=== PATIENT | female | born 1945 | race African-American/Black ===

== ENCOUNTER 2019-04-14 11:39 | Inpatient (IN) | payer MEDICARE, OTHER ==
[~2019-04-14] VITALS: Ht 165.1 cm; Wt 62.6 kg
[2019-04-14 11:50] VITALS: BP 93/39
--- NOTE | 2019-04-14 11:50 | NUR ---
ED Nurse Note: pt brought by [facility] from [facility] for eval on wound on right buttock. open, yellow drainage noted. no fever or chills reported. AAO x4. respirtions even and non-labored noted. skin warm to touch. per pt, "my legs are weak, I can not walk." pt able to use a bedpan. Rn provide bedpan to get urine sample. on radiation monitor. 2 side rails up. call light within reach. will wait for the further order.
[2019-04-14] MEDS ORDERED: Ipratropium 0.02% Inh Soln 2.5ml UD HHN ONE (12:00)
[2019-04-14] MEDS ORDERED: Albuterol ud Inhalation HHN ONE (12:00)
[2019-04-14] MEDS ORDERED: Morphine Sulfate 2mg/ml Inj(IV/IM USE ONLY) IVP ONE (12:00)
--- NOTE | 2019-04-14 12:19 | Diagnostic Imaging Report ---
EXAM: XR Chest, 1 View CLINICAL HISTORY: DYSPNEA TECHNIQUE: Frontal view of the chest. COMPARISON: No relevant prior studies available. FINDINGS: Lungs: No consolidation. Pleural space: Unremarkable. No pneumothorax. Heart: Borderline cardiomegaly. Mediastinum: Unremarkable. Bones joints: No acute fracture. IMPRESSION: No acute cardiopulmonary disease.
[2019-04-14 13:00] VITALS: BP 104/47
--- NOTE | 2019-04-14 13:00 | NUR ---
ED Nurse Note: lunch tray provide as requested. RN confirmed with that it is ok to eat.
[2019-04-14 13:06] LABS: ANION GAP 10 mmol/L (5-15); BLOOD UREA NITROGEN 11 mg/dL (7-18); CALCIUM 9.6 MG/DL (8.5-10.1); CARBON DIOXIDE 25 MMOL/L (21-32); CHLORIDE 107 MMOL/L (98-107); POTASSIUM 3.6 MMOL/L (3.5-5.1); SODIUM 142 MMOL/L (136-145)
[2019-04-14 13:11] LABS: APPEARANCE,URINE CLEAR; BILIRUBIN, URINE NEGATIVE (NEGATIVE); COLOR,URINE PALE YELLOW; GLUCOSE, URINE (UA) NEGATIVE (NEGATIVE); KETONES,URINE NEGATIVE (NEGATIVE); LEUKOCYTE ESTERASE ,URINE 3+ (NEGATIVE); NITRITE,URINE NEGATIVE (NEGATIVE); PH,URINE 6 (4.5-8.0); PROTEIN,URINE NEGATIVE (NEGATIVE); UROBILINOGEN,URINE 1 MG/DL (0.0-1.0)
[2019-04-14 13:12] LABS: BASOPHILS % (AUTO) 1.7 % (0.0-2.0); EOSINOPHILS % (AUTO) 6.6 % (0.0-3.0); HEMOGLOBIN 11.9 G/DL (12.0-16.0); LYMPHOCYTES % (AUTO) 32.7 % (20.0-45.0); MEAN CORPUSCULAR VOLUME 93 FL (80-99); MONOCYTES % (AUTO) 7.1 % (1.0-10.0); NEUTROPHILS % (AUTO) 51.9 % (45.0-75.0); PLATELET COUNT 247 K/UL (150-450); RED BLOOD COUNT 3.89 M/UL (4.20-5.40); RED CELL DISTRIBUTION WIDTH 12.9 % (11.6-14.8); WHITE BLOOD COUNT 5.5 K/UL (4.8-10.8)
[2019-04-14 13:15] LABS: INR 0.9 (0.9-1.1)
[2019-04-14 13:17] LABS: ALANINE AMINOTRANSFERASE 17 U/L (12-78); ALBUMIN 3.1 G/DL (3.4-5.0); ALBUMIN/GLOBULIN RATIO 0.9 (1.0-2.7); ALKALINE PHOSPHATASE 97 U/L (46-116); ASPARTATE AMINO TRANSFERASE 14 U/L (15-37); BILIRUBIN,TOTAL 0.2 MG/DL (0.2-1.0); CREATINE KINASE 86 U/L (26-308)
[2019-04-14 14:00] VITALS: BP 102/76
[2019-04-14] MEDS ORDERED: Piperacillin/Tazobactam 3.375 GM in NS 110 ML IVPB ONE (14:15)
[2019-04-14] MEDS ORDERED: Vancomycin 1 GM in NS 275 ML IVPB ONE (14:15)
--- NOTE | 2019-04-14 15:00 | NUR ---
ED Nurse Note: pt lying in bed with eye closed. no facial grimacing or moaning noted. will wait for the further order.
--- NOTE | 2019-04-14 15:20 | Emergency Room Report ---
History of Present Illness General Chief Complaint: General Complaint Source: Patient, EMS, PMD Present Illness HPI Patient is sent for evaluation of pressure sore. She is in a longterm facility. It is unclear the course of how long this developed. Her private physician requested that she be brought for surgical evaluation to the emergency department. In addition he is concerned about a possible urinary tract infection. Pain rated 10/10 at pressure sore. Sharp and aching without radiation. The patient denies fevers or chills. The patient currently smokes. She is complaining about wheezing. She is not on oxygen at the longterm facility. She does not have any productive cough at this time. She denies chest pain. No nausea, vomiting, diarrhea. She does say that she has some mild dysuria. She complains of generalized weakness. She denies headache, change in vision or numbness. She denies depression. Allergies: Coded Allergies: No Known Allergies (Unverified , 04/14/19) Patient History Past Medical History: see triage record Social History: Reports: smoking Social History Narrative SNF -born in [place] Reviewed Nursing Documentation: PMH: Agreed; PSxH: Agreed Nursing Documentation-PMH Hx Cardiac Problems: Yes - HYPERLIPIDEMIA Hx Hypertension: Yes Hx Diabetes: Yes Hx Gastrointestinal Problems: Yes - GERD History Of Psychiatric Problem: Yes Review of Systems All Other Systems: negative except mentioned in HPI Physical Exam Vital Signs Date Time Temp Pulse Resp B/P (MAP) Pulse Ox O2 Delivery O2 Flow Rate FiO2 04/14/19 11:43 98.6 92 19 89/53 (65) 96 Nasal Cannula 2.0 04/14/19 12:53 21 Sp02 EP Interpretation: reviewed, abnormal - On oxygen her underlying oxygen saturation is most likely low. General Appearance: no apparent distress, non-toxic, Chronically Ill Head: normocephalic, atraumatic Eyes: bilateral eye normal inspection, bilateral eye PERRL, bilateral eye EOMI ENT: moist mucus membranes Neck: full range of motion, supple Respiratory: chest non-tender, wheezing, expiration Cardiovascular #1: normal peripheral pulses, regular rate, rhythm, no edema, no JVD Cardiovascular #2: 2+ radial (R) Gastrointestinal: normal bowel sounds, non tender, soft Genitourinary: no CVA tenderness Musculoskeletal: back normal, normal range of motion, no calf tenderness Neurologic: motor strength/tone normal, DTRs symmetric, sensory intact, oriented - X2 Psychiatric: mood/affect normal Skin: Decubitus/Ulcer - right hip area - hard to stage - eschar filling area - looks deep - some purulent drainage, warm/dry Medical Decision Making Diagnostic Impression: Primary Impression: UTI (urinary tract infection) Qualified Codes: N39.0 - Urinary tract infection, site not specified Additional Impressions: Decubitus ulcer Qualified Codes: L89.210 - Pressure ulcer of right hip, unstageable COPD (chronic obstructive pulmonary disease) Qualified Codes: J44.9 - Chronic obstructive pulmonary disease, unspecified ER Course Patient presents for evaluation of decubitus ulcer. Differential includes cellulitis, wound needing surgical debridement, abscess amongst others. In addition the patient is complaining about some mild dysuria and wheezing. Evaluation with EKG, chest x-ray and labs. 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 Breathing treatments are ordered. In addition morphine is ordered for analgesia along with Zofran. EKG without injury. Chest x-ray with some mild COPD no infiltrates. Normal white count. Eosinophilia. Labs with slightly elevated glucose. Pyuria is present. Culture of decubitus wound obtained by ct and sent to lab. Antibiotics begun for urinary tract infection. In addition consideration of coverage for possible decubitus infection. Advised by [place] to admit the patient for observation. Dr. Talley distribution engineer. Also contacted Dr. Garg for consultation. Notify Dr. Mathis of admission to Dr. Talley. Advised patient of UTI and she asks if it is syphilis. Advised patient that there is no suspicion of syphilis at this time. Improved with treatment - less pain and no respiratory distress. Admit medical floor. Laboratory Tests Test 04/14/19 12:30 White Blood Count 5.5 K/UL (4.8-10.8) Red Blood Count 3.89 M/UL (4.20-5.40) L Hemoglobin 11.9 G/DL (12.0-16.0) L Hematocrit 36.0 % (37.0-47.0) L Mean Corpuscular Volume 93 FL (80-99) Mean Corpuscular Hemoglobin 30.6 PG (27.0-31.0) Mean Corpuscular Hemoglobin Concent 33.0 G/DL (32.0-36.0) Red Cell Distribution Width 12.9 % (11.6-14.8) Platelet Count 247 K/UL (150-450) Mean Platelet Volume 7.5 FL (6.5-10.1) Neutrophils (%) (Auto) 51.9 % (45.0-75.0) Lymphocytes (%) (Auto) 32.7 % (20.0-45.0) Monocytes (%) (Auto) 7.1 % (1.0-10.0) Eosinophils (%) (Auto) 6.6 % (0.0-3.0) H Basophils (%) (Auto) 1.7 % (0.0-2.0) Prothrombin Time 10.1 SEC (9.30-11.50) Prothrombin Time INR 0.9 (0.9-1.1) PTT 27 SEC (23-33) Urine Color Pale yellow Urine Appearance Clear Urine pH 6 (4.5-8.0) Urine Specific [place] 1.010 (1.005-1.035) Urine Protein Negative (NEGATIVE) Urine Glucose (UA) Negative (NEGATIVE) Urine Ketones Negative (NEGATIVE) Urine Blood 1+ (NEGATIVE) H Urine Nitrite Negative (NEGATIVE) Urine Bilirubin Negative (NEGATIVE) Urine Urobilinogen 1 MG/DL (0.0-1.0) H Urine Leukocyte Esterase 3+ (NEGATIVE) H Urine RBC 0-2 /HPF (0 - 2) Urine WBC 30-40 /HPF (0 - 2) H Urine Squamous Epithelial Cells Few /LPF (NONE/OCC) Urine Bacteria Moderate /HPF (NONE) H Sodium Level 142 MMOL/L (136-145) Potassium Level 3.6 MMOL/L (3.5-5.1) Chloride Level 107 MMOL/L (98-107) Carbon Dioxide Level 25 MMOL/L (21-32) Anion Gap 10 mmol/L (5-15) Blood Urea Nitrogen 11 mg/dL (7-18) Creatinine 1.0 MG/DL (0.55-1.30) Estimate Glomerular Filtration Rate mL/min (>60) Glucose Level 172 MG/DL (74-106) H Lactic Acid Level 1.60 mmol/L (0.4-2.0) Calcium Level 9.6 MG/DL (8.5-10.1) Total Bilirubin 0.2 MG/DL (0.2-1.0) Aspartate Amino Transferase (AST) 14 U/L (15-37) L Alanine Aminotransferase (ALT) 17 U/L (12-78) Alkaline Phosphatase 97 U/L (46-116) Total Creatine Kinase 86 U/L (26-308) Troponin I 0.000 ng/mL (0.000-0.056) Pro-B-Type Natriuretic Peptide 459 pg/mL (0-125) H Total Protein 6.4 G/DL (6.4-8.2) Albumin 3.1 G/DL (3.4-5.0) L Globulin 3.3 g/dL Albumin/Globulin Ratio 0.9 (1.0-2.7) L Lipase 136 U/L (73-393) EKG Diagnostic Results Rate: normal Rhythm: NSR ST Segments: no acute changes Rhythm Strip Diag. Results EP Interpretation: yes Rhythm: NSR, no PVC's, no ectopy Chest X-Ray Diagnostic Results Chest X-Ray Diagnostic Results : Chest X-Ray Ordered: Yes Indication: Other EP Interpretation: Yes Interpretation: no consolidation, no effusion, no pneumothorax, other - COPD Impression: Other Electronically Signed by: Electronically signed by Jovan Mack MD Last Vital Signs Date Time Temp Pulse Resp B/P (MAP) Pulse Ox O2 Delivery O2 Flow Rate FiO2 04/14/19 18:24 Room Air 04/14/19 18:08 98.2 72 17 95/51 (66) 94 04/14/19 12:54 21 04/14/19 11:43 2.0 Status: improved Disposition: PLACE IN OBSERVATION Condition: Serious Referrals: Joyce Mathis MD (PCP) Jovan Mack MD Apr 14, 2019 15:20
[2019-04-14 16:00] VITALS: BP 107/57
[2019-04-14] MEDS ORDERED: NEXIUM40 MG ORAL (16:32)
[2019-04-14] MEDS ORDERED: SERTRALINE HCL25 MG ORAL (16:32)
[2019-04-14] MEDS ORDERED: RISPERDAL1 MG PO (16:32)
[2019-04-14] MEDS ORDERED: PHARBETOL500 MG PO (16:32)
[2019-04-14] MEDS ORDERED: LABETALOL HCL100 MG ORAL (16:32)
[2019-04-14] MEDS ORDERED: LOSARTAN POTASS50 MG ORAL (16:32)
[2019-04-14] MEDS ORDERED: AMLODIPINE BESYL5 MG ORAL (16:32)
[2019-04-14] MEDS ORDERED: CRESTOR10 M2 ORAL (16:32)
[2019-04-14] MEDS ORDERED: GLIPIZIDE5 MG ORAL (16:32)
--- NOTE | 2019-04-14 17:03 | NUR ---
ED Nurse Note: reports given to LUBNA Barr
[2019-04-14 18:08] VITALS: BP 95/51
--- NOTE | 2019-04-14 18:15 | NUR ---
NURSE NOTES: RECEIVED ADMISSION ORDERS FROM DR HALL. BELONGINGS CHECKED AT BEDSIDE. ALL ACCOUNTED. WOUND ON RIGHT BUTTOCK NOTED, UNSTAGEABLE WITH YELLOW SLOUGH. DRESSING CHANGE DONE. CLEANSED WITH NS, SKIN BARRIER FILM, AND OPTIFOAM APPLIED. NO ODOR NOTED. NO DRAINAGE NOTED. PT WAS ORIENTED TO ROOM AND EDUCATED TO USE CALL LIGHT FOR ANY ASSISTANCE. PT VERBALIZED UNDERSTANDING. BED IN LOWEST POSITION WITH BEDSIDE RAILS X2 RAISED. WILL CONTINUE TO MONITOR.
[2019-04-14] MEDS ORDERED: Morphine Sulfate 2mg/ml Inj(IV/IM USE ONLY) IVP PRN (18:45)
--- NOTE | 2019-04-14 19:24 | NUR ---
HAND-OFF: Report given to Elliot WRAY RN.
[2019-04-14] MEDS: Losartan 25mg tab ORAL SCH (21:00)
[2019-04-14] MEDS: Atorvastatin 20mg tab ORAL SCH (21:31)
[2019-04-14] MEDS: Piperacillin/Tazobactam 3.375 GM in NS 110 ML IVPB SCH (21:32)
[2019-04-14] MEDS: Heparin 5000 units/ml inj SUBQ SCH (21:32)
[2019-04-15] MEDS: Vancomycin 750mg/NS 275ml IVPB SCH ×4 (03:12→14:51)
[2019-04-15] MEDS: GlipiZIDE 5mg tab ORAL SCH ×2 (05:55→17:06)
[2019-04-15] MEDS: Piperacillin/Tazobactam 3.375 GM in NS 110 ML IVPB SCH ×3 (05:55→21:36)
--- NOTE | 2019-04-15 07:03 | NUR ---
HAND-OFF: Report given to Brigido Barr RN.
--- NOTE | 2019-04-15 07:09 | NUR ---
NURSE NOTES: PT sitting up in bed. Alert x2, follows commands. Denies pain at this time. In no acute distress. Dressing changed to buttocks. On fall precautions. Bed in lowest position, locked side rails x2, bed alarm on. informed to call for assistance to commode. Pt verbalized understanding. Will continue to monitor Addendum: 04/15/19 at 0710 by Kathya Johnson RN incorrect time
--- NOTE | 2019-04-15 07:56 | NUR ---
Pt awake in bed, alert and oriented, in room air, no apparent distress noted. IV intact, patent, abx running. Bed in lowest position, side rails up, call light within reach.
[2019-04-15 08:00] VITALS: BP 113/62
[2019-04-15] MEDS: Losartan 25mg tab ORAL SCH ×2 (08:34→20:28)
[2019-04-15] MEDS: Sertraline 100mg tab ORAL SCH (08:36)
[2019-04-15] MEDS: Heparin 5000 units/ml inj SUBQ SCH ×2 (08:38→20:32)
--- NOTE | 2019-04-15 09:00 | NUR ---
RN held on amlodipine and losartan due to pt's BP 113/62.
--- NOTE | 2019-04-15 09:39 | NUR ---
NURSE NOTES: DR HALL AT BEDSIDE, AND MADE AWARE OF WOUND CULTURE POSITIVE FOR MRSA. NO NEW ORDERS RECEIVED.
[2019-04-15 12:00] VITALS: BP 120/69
--- NOTE | 2019-04-15 14:02 | Consultation ---
History of Present Illness General Date patient seen: Apr 15, 2019 Reason for Hospitalization: General Complaint Present Illness HPI This is a very pleasant 73-year-old female prison resident with multiple medical comorbidities who presented with foul-smelling worsening right buttock decubitus ulcer and foul-smelling urine. Patient was admitted for further work- up care and management. Surgery was called to evaluate and assist with care. Patient seen, patient evaluated, chart reviewed. Patient states that when she uses the bathroom oral is gets turned there is a very foul smell coming and makes very uncomfortable and would like it to smell better. Otherwise states she is well and has no complaints Allergies: Coded Allergies: No Known Allergies (Unverified , 04/14/19) Medication History Scheduled Acetaminophen (Pharbetol), 500 MG PO PRN, (Reported) Amlodipine Besylate* (Amlodipine Besylate*), 5 MG ORAL BID, (Reported) Esomeprazole Magnesium (Nexium), 40 MG ORAL DAILY, (Reported) Glipizide* (Glipizide*), 5 MG ORAL BID, (Reported) Labetalol Hcl* (Normodyne*), 100 MG ORAL TID, (Reported) Losartan Potassium* (Losartan Potassium*), 50 MG ORAL BID, (Reported) Risperidone* (Risperdal*), 1 MG PO BID, (Reported) Rosuvastatin Calcium* (Crestor*), 10 MG ORAL DAILY, (Reported) Sertraline Hcl* (Sertraline Hcl*), 100 MG ORAL DAILY, (Reported) Patient History History Provided By: Patient, Medical Record, PMD Healthcare decision maker Resuscitation status Full Code Advanced Directive on File Past Medical/Surgical History Past Medical/Surgical History: (1) Sacral decubitus ulcer (2) Decubitus ulcer (3) COPD (chronic obstructive pulmonary disease) (4) UTI (urinary tract infection) Review of Systems Review of Symptoms General ROS: no weight loss or fever Psychological ROS: no depression or mood changes, no memory loss Ophthalmic ROS: no visual changes or eye irritation ENT ROS: no nasal congestion, hearing loss, dizziness Allergy and Immunology ROS: no allergic symptoms or urticaria Hematological and Lymphatic ROS: no swollen glands, unusual bleeding or bruising Endocrine ROS: no polyuria, polydipsia, weight changes, temperature intolerance Respiratory ROS: no cough, shortness of breath, or wheezing Cardiovascular ROS: no chest pain or dyspnea on exertion Gastrointestinal ROS: denies abdominal pain, no bright red blood in stool. Musculoskeletal ROS: no myalgias or arthralgias Neurological ROS: no TIA or stroke symptoms Dermatological ROS: no new or changing skin lesions, rashes or pruritis Physical Exam Physical Exam General appearance: alert, cooperative, no distress, appears stated age Head: Normocephalic, without obvious abnormality, atraumatic Eyes: conjunctivae/corneas clear. PERRL, EOM's intact. Fundi benign Throat: Lips, mucosa, and tongue normal. Teeth and gums normal Neck: supple, symmetrical, trachea midline, no adenopathy, thyroid: not enlarged, symmetric, no tenderness/mass/nodules, no carotid bruit and no JVD Lungs: clear to auscultation bilaterally Heart: regular rate and rhythm, S1, S2 normal, no murmur, click, rub or gallop Abdomen: soft, non-tender. Bowel sounds normal. No masses, no organomegaly Extremities: extremities normal, atraumatic, no cyanosis or edema Pulses: 2+ and symmetric Skin: Skin color, texture, turgor normal. No rashes or lesions see below Neurologic: Grossly normal Last 24 Hour Vital Signs Date Time Temp Pulse Resp B/P (MAP) Pulse Ox O2 Delivery O2 Flow Rate FiO2 04/15/19 13:23 67 120/69 04/15/19 12:00 98.5 67 22 120/69 (86) 97 04/15/19 09:00 Room Air 04/15/19 08:35 73 113/62 04/15/19 08:34 113/62 04/15/19 08:00 97.3 73 22 113/62 (79) 96 04/15/19 05:55 75 120/60 04/14/19 21:07 72 101/44 04/14/19 21:00 101/44 04/14/19 18:24 Room Air 04/14/19 18:08 98.2 72 17 95/51 (66) 94 04/14/19 18:00 72 95/51 04/14/19 17:16 98.0 92 21 115/65 97 Room Air 04/14/19 16:00 98.0 81 20 107/57 97 Room Air 04/14/19 14:00 98.1 88 18 102/76 98 Room Air Intake and Output 04/14/19 04/15/19 18:59 06:59 Intake Total 985 ml Balance 985 ml Intake IV Total 985 ml # Voids 7 Microbiology Date/Time Source Procedure Growth Status 04/14/19 14:25 Skin Gram Stain - Final Resulted 04/14/19 14:25 Wound Culture - Preliminary Staphylococcus Aureus Resulted Height (Feet): 5 Height (Inches): 5.00 Weight (Pounds): 140 Medications Current Medications Medications (Trade) Dose Ordered Sig/Katia Route PRN Reason Start Time Stop Time Status Last Admin Dose Admin Amlodipine Besylate (Norvasc) 5 mg BID ORAL 04/14/19 18:00 05/14/19 17:59 Atorvastatin Calcium (Lipitor) 20 mg BEDTIME ORAL 04/14/19 21:00 05/14/19 20:59 04/14/19 21:31 Glipizide (Glucotrol) 5 mg BIAC ORAL 04/15/19 06:30 05/15/19 06:29 04/15/19 05:55 Heparin Sodium (Porcine) (Heparin 5000 units/ml) 5,000 units EVERY 12 HOURS SUBQ 04/14/19 21:00 05/14/19 20:59 04/15/19 08:38 Labetalol HCl (Normodyne) 100 mg Q8HR ORAL 04/14/19 22:00 05/14/19 21:59 04/15/19 05:55 Losartan Potassium (Cozaar) 25 mg EVERY 12 HOURS ORAL 04/14/19 21:00 05/14/19 20:59 Morphine Sulfate (Morphine Sulfate) 1 mg Q4H PRN IVP Moderate Pain (Pain Scale 4-6) 04/14/19 18:45 04/21/19 18:44 Pantoprazole (Protonix) 40 mg DAILY ORAL 04/15/19 09:00 05/15/19 08:59 04/15/19 08:35 Piperacillin Sod/ Tazobactam Sod 3.375 gm/Sodium Chloride 110 ml @ 27.5 mls/hr EVERY 8 HOURS IVPB 04/14/19 22:00 04/19/19 21:59 04/15/19 13:23 Risperidone (RisperDAL) 1 mg TWICE A DAY ORAL 04/14/19 18:00 05/14/19 17:59 04/15/19 08:36 Sertraline HCl (Zoloft) 100 mg DAILY ORAL 04/15/19 09:00 05/15/19 08:59 04/15/19 08:36 Vancomycin HCl (Vanco rx to dose) 1 ea DAILY PRN MISC Per rx protocol 04/14/19 18:00 05/14/19 17:59 Vancomycin HCl 750 mg/Sodium Chloride 275 ml @ 183.333 mls/hr Q12HR@0300,1500 IVPB 04/15/19 03:00 04/20/19 02:59 04/15/19 03:12 Assessment/Plan Problem List: (1) Decubitus ulcer Assessment & Plan: 73-year-old female with a foul-smelling right buttock full- thickness stage 3 decubitus ulcer approximately 3 cm x 3 cm with 100% slough. Periwound intact. No purulent drainage. Also has a small unstageable 1 cm x 2 cm left buttock decubitus ulcer as well. Periwound intact. No fluctuance. Nontender on palpation. Patient unsure how long she has had it for. Patient needs optimal nutritional supplementation to ensure healing of wounds. Will await nutritional evaluation and recommendations Patient states that she is able to move and does walk to the bedside commode. I spoke to patient and explained her how important is that she keeps turning herself and offloading pressure on areas of wound and bony prominences. Patient expressed understanding and states she will do her best. Wash right buttock wound with normal saline daily. Apply Thera honey and foam dressing. Will discuss with patient excisional versus non-excisional debridement Turn every 2 hours Offload pressure on heels with pillow Thank you for this consultation we will continue to follow with recommendations ICD Codes: L89.90 - Pressure ulcer of unspecified site, unspecified stage SNOMED: [id number] Qualifiers: Qualified Codes: L89.210 - Pressure ulcer of right hip, unstageable Александр Garg Apr 15, 2019 14:02
[2019-04-15 16:00] VITALS: BP 117/67
--- NOTE | 2019-04-15 16:30 | History and Physical Report ---
DATE OF ADMISSION: 04/14/2019 CHIEF COMPLAINT: Right buttocks ulcer and abscess. HISTORY OF PRESENT ILLNESS: The patient is a 73-year-old female. She has a history of hypertension and diabetes, presented with complaints of right buttocks pain. She was noted to have a large ulcer and open abscess on the right buttocks. According to the patient, she has had pain in the buttock area for approximately two weeks. She has had subjective fevers and chills. She denies any chest pain or shortness of breath. On evaluation in the emergency room, the patient was afebrile. Her white count was normal, but in light of the large abscess and ulcer on her buttocks, she is now admitted for further inpatient evaluation and care. PAST MEDICAL HISTORY: As above. PAST SURGICAL HISTORY: None. CURRENT MEDICATIONS: Reconciled and reviewed. ALLERGIES: None. FAMILY HISTORY: None. SOCIAL HISTORY: There is no known history of tobacco, ethanol, or drugs. REVIEW OF SYSTEMS: GENERAL: Positive fever and chills, but no night sweats. HEENT: No headaches or visual changes. CARDIOPULMONARY: No chest pain or shortness of breath. GASTROINTESTINAL: No nausea or vomiting. GENITOURINARY: No urgency or frequency. MUSCULOSKELETAL: No joint pain or swelling. Neurologic: No evidence of seizures. PHYSICAL EXAMINATION: VITAL SIGNS: Temperature 98.6, pulse 92, respirations 19, blood pressure 89/53. GENERAL: The patient is well-developed, in no apparent distress. HEART: Regular rate and rhythm. LUNGS: Clear. ABDOMEN: Soft, nontender, nondistended. EXTREMITIES: Without clubbing or cyanosis. There is a 3 to 4 cm round open area of induration with whitish slough. There is erythema noted. The patient is exquisitely tender. LABORATORY DATA: Sodium 142, potassium 3.6. White count 5, hemoglobin 11. ASSESSMENT: This is a pleasant elderly female with history of hypertension, diabetes, admitted with complaints of sepsis, possibly mild shock due to a large buttock abscess. She also had a UTI. PLAN: 1. IV antibiotics. 2. Surgical consultation. 3. Cardiology followup regarding the patient's antihypertensives that she is hypotensive currently. 4. We will hydrate gently. 5. We will follow up pending cultures. 6. The patient may need a surgical I and D. 7. We will defer to the consulting surgeon. 8. We will check an A1c level. 9. The patient received IV and oral pain medications as needed. 10. She also received DVT and stress ulcer prophylaxis. Trevor Talley M.D. DR: JOSIE JOB#: [id number] CC:
[2019-04-15] MEDS: Milk of Magnesia 30ml Ud ORAL PRN (17:06)
--- NOTE | 2019-04-15 17:12 | NUR ---
NURSE NOTES: RN held on amlodipine due to pt's BP 117/67 and P 65
--- NOTE | 2019-04-15 17:20 | Cardiology Report ---
APPROVED REPORT EKG Measurement Heart [id number] ID [id number] Normal sinus rhythm with sinus arrhythmia Anterior infarct, age undetermined Abnormal ECG
--- NOTE | 2019-04-15 17:22 | NUR ---
NURSE NOTES: RN changed the dressing on pt's right buttock with thera honey. Pt tolerated.
--- NOTE | 2019-04-15 18:15 | Consultation ---
DATE OF CONSULTATION: 04/15/2019 CARDIOLOGY CONSULTATION CONSULTING PHYSICIAN: Jovan Rose M.D. REASON FOR CONSULT: Hypotension. HISTORY OF PRESENT ILLNESS: This 73-year-old female residing in an assisted living facility, presented to the emergency room last night with pain on her buttocks and was noted to have a large ulcer with open abscess on the right buttock cheek. The patient was noted to have a low blood pressure in the setting although she has a history of hypertension. I have been asked to assist with further cardiovascular care. PAST MEDICAL HISTORY: Otherwise notable for type 2 diabetes mellitus, hypertension, and osteoarthritis. ALLERGIES: None. MEDICATIONS: Reviewed and reconciled. FAMILY HISTORY: Noncontributory. SOCIAL HISTORY: Negative for smoking, alcohol, or substance abuse. REVIEW OF SYSTEMS: She denies prior heart attack. There is no history of seizure or stroke. She is a type 2 diabetic. Cholesterol parameters are not known. There is no known history of kidney disease. PHYSICAL EXAMINATION: VITAL SIGNS: Blood pressure on admission was 89/53, subsequently 95/51; heart rate 72; respiratory rate 18; and afebrile. HEENT: Jugular venous pressure normal. Mucous membranes dry. LUNGS: Clear. CARDIAC: Regular rhythm and rate. Normal S1, S2 with no murmur. ABDOMEN: Soft and nontender. EXTREMITIES: No edema. SKIN: Wound site has dressing in place. LABORATORY AND DIAGNOSTIC DATA: EKG, sinus rhythm with arrhythmia, possible inferior infarction of indeterminate age. Labs reviewed. IMPRESSION: 1. Hypovolemia and early shock. 2. History of hypertension. 3. Possible sepsis due to skin infection. 4. Abscess of the right buttock with cellulitis. 5. Type 2 diabetes mellitus. PLAN: 1. Hydrate with IV fluids. 2. Empiric antimicrobials. 3. Wound care. 4. Hold all antihypertensives. 5. DVT prophylaxis. 6. Antimicrobials per primary care physician. 7. We will follow. Jovan Rose M.D. : [place] JOB#: [id number] CC:
--- NOTE | 2019-04-15 19:15 | NUR ---
HAND-OFF: Report given to LUBNA Rasheed.
--- NOTE | 2019-04-15 19:20 | NUR ---
NURSE NOTES: PT sitting up in bed. Alert x2, follows commands. Denies pain at this time. In no acute distress. Dressing changed to buttocks. On fall precautions. Bed in lowest position, locked side rails x2, bed alarm on. informed to call for assistance to commode. Pt verbalized understanding. Will continue to monitor
[2019-04-15 20:00] VITALS: BP 130/73
[2019-04-15] MEDS: Atorvastatin 20mg tab ORAL SCH (20:27)
[2019-04-16] VITALS: BP 107/64
[2019-04-16] MEDS: Vancomycin 750mg/NS 275ml IVPB SCH ×4 (03:59→15:04)
[2019-04-16 04:00] VITALS: BP 120/61
[2019-04-16 04:43] LABS: BASOPHILS % (AUTO) 1.4 % (0.0-2.0); EOSINOPHILS % (AUTO) 11.1 % (0.0-3.0); HEMATOCRIT 35.4 % (37.0-47.0); HEMOGLOBIN 11.5 G/DL (12.0-16.0); LYMPHOCYTES % (AUTO) 38.6 % (20.0-45.0); MEAN CORPUSCULAR VOLUME 93 FL (80-99); MONOCYTES % (AUTO) 11.2 % (1.0-10.0); NEUTROPHILS % (AUTO) 37.7 % (45.0-75.0); PLATELET COUNT 266 K/UL (150-450); RED BLOOD COUNT 3.83 M/UL (4.20-5.40); RED CELL DISTRIBUTION WIDTH 12.5 % (11.6-14.8); WHITE BLOOD COUNT 5.6 K/UL (4.8-10.8)
[2019-04-16 05:06] LABS: INR 0.9 (0.9-1.1)
[2019-04-16 05:23] LABS: ALANINE AMINOTRANSFERASE 13 U/L (12-78); ALBUMIN/GLOBULIN RATIO 0.9 (1.0-2.7); ALKALINE PHOSPHATASE 83 U/L (46-116); ANION GAP 7 mmol/L (5-15); ASPARTATE AMINO TRANSFERASE 13 U/L (15-37); BILIRUBIN,TOTAL 0.2 MG/DL (0.2-1.0); BLOOD UREA NITROGEN 13 mg/dL (7-18); CARBON DIOXIDE 28 MMOL/L (21-32); CHLORIDE 110 MMOL/L (98-107); CREATININE 1.2 MG/DL (0.55-1.30); POTASSIUM 4.1 MMOL/L (3.5-5.1); SODIUM 145 MMOL/L (136-145)
[2019-04-16] MEDS: Piperacillin/Tazobactam 3.375 GM in NS 110 ML IVPB SCH (06:38)
[2019-04-16] MEDS: GlipiZIDE 5mg tab ORAL SCH ×2 (06:38→16:09)
--- NOTE | 2019-04-16 07:35 | NUR ---
HAND-OFF: Report given to LUBNA Sanchez.
--- NOTE | 2019-04-16 07:52 | NUR ---
NURSE NOTES: Pt awake, A/O x 4, calm. denies pain. no SOB noted. dressing in place, CDI. remains on Abx. call light within reach. fall precaution maintained. bed alarm on. will continue to monitor.
[2019-04-16 08:00] VITALS: BP 122/63
[2019-04-16] MEDS: Sertraline 100mg tab ORAL SCH (08:27)
[2019-04-16] MEDS: Losartan 25mg tab ORAL SCH ×2 (08:29→21:12)
[2019-04-16] MEDS: Heparin 5000 units/ml inj SUBQ SCH ×2 (08:29→21:13)
--- NOTE | 2019-04-16 09:17 | General Progress Note ---
Assessment/Plan Problem List: (1) UTI (urinary tract infection) ICD Codes: N39.0 - Urinary tract infection, site not specified SNOMED: 79718154 Qualifiers: Qualified Codes: N39.0 - Urinary tract infection, site not specified (2) COPD (chronic obstructive pulmonary disease) ICD Codes: J44.9 - Chronic obstructive pulmonary disease, unspecified SNOMED: 22576376 Qualifiers: Qualified Codes: J44.9 - Chronic obstructive pulmonary disease, unspecified (3) Decubitus ulcer ICD Codes: L89.90 - Pressure ulcer of unspecified site, unspecified stage SNOMED: 883084141 Qualifiers: Qualified Codes: L89.210 - Pressure ulcer of right hip, unstageable (4) Sacral decubitus ulcer ICD Codes: L89.159 - Pressure ulcer of sacral region, unspecified stage SNOMED: 944367666 Status: stable, progressing Assessment/Plan: iv abx follow up cultures wound care pain rx ID eval Subjective ROS Limited/Unobtainable: No Constitutional: Reports: malaise, weakness HEENT: Reports: no symptoms Cardiovascular: Reports: no symptoms Respiratory: Reports: no symptoms Gastrointestinal/Abdominal: Reports: no symptoms Genitourinary: Reports: no symptoms Neurologic/Psychiatric: Reports: no symptoms Endocrine: Reports: no symptoms Hematologic/Lymphatic: Reports: no symptoms Allergies: Coded Allergies: No Known Allergies (Unverified , 04/14/19) All Systems: reviewed and negative except above Subjective no events. w/o complaints. right buttocks pain. getting wound care. cultures noted. no fevers Objective Last 24 Hour Vital Signs Date Time Temp Pulse Resp B/P (MAP) Pulse Ox O2 Delivery O2 Flow Rate FiO2 04/16/19 08:29 122/63 04/16/19 08:28 70 122/63 04/16/19 08:00 98.3 70 20 122/63 (82) 99 04/16/19 06:00 66 119/57 04/16/19 04:00 97.8 66 20 120/61 (80) 98 04/16/19 00:00 98.7 72 20 107/64 (78) 97 04/15/19 21:36 80 104/57 04/15/19 21:00 Room Air 04/15/19 20:28 130/73 04/15/19 20:00 99.0 73 20 130/73 (92) 94 04/15/19 17:09 65 117/67 04/15/19 16:00 98.0 65 20 117/67 (84) 97 04/15/19 13:23 67 120/69 04/15/19 12:00 98.5 67 22 120/69 (86) 97 Intake and Output 04/15/19 04/16/19 19:00 07:00 Intake Total 357.500 ml Balance 357.500 ml Intake IV Total 357.500 ml # Bowel Movements 1 Laboratory Tests 04/16/19 02:05: Vancomycin Level Trough 12.9H 04/16/19 04:30: White Blood Count 5.6, Red Blood Count 3.83L, Hemoglobin 11.5L, Hematocrit 35.4L , Mean Corpuscular Volume 93, Mean Corpuscular Hemoglobin 30.1, Mean Corpuscular Hemoglobin Concent 32.5, Red Cell Distribution Width 12.5, Platelet Count 266, Mean Platelet Volume 7.0, Neutrophils (%) (Auto) 37.7L, Lymphocytes ( %) (Auto) 38.6, Monocytes (%) (Auto) 11.2H, Eosinophils (%) (Auto) 11.1H, Basophils (%) (Auto) 1.4, Erythrocyte Sedimentation Rate 30, Prothrombin Time 9.8, Prothromb Time International Ratio 0.9, Activated Partial Thromboplast Time 27, Sodium Level 145, Potassium Level 4.1, Chloride Level 110H, Carbon Dioxide Level 28, Anion Gap 7, Blood Urea Nitrogen 13, Creatinine 1.2, Estimat Glomerular Filtration Rate , Glucose Level 51L, Calcium Level 10.0, Total Bilirubin 0.2, Aspartate Amino Transf (AST/SGOT) 13L, Alanine Aminotransferase ( ALT/SGPT) 13, Alkaline Phosphatase 83, C-Reactive Protein, Quantitative 0.8, Total Protein 6.2L, Albumin 3.0L, Globulin 3.2, Albumin/Globulin Ratio 0.9L Height (Feet): 5 Height (Inches): 5.00 Weight (Pounds): 140 General Appearance: WD/WN, alert Neck: supple Cardiovascular: normal rate, regular rhythm Respiratory/Chest: chest wall non-tender, lungs clear Abdomen: normal bowel sounds, non tender, soft, no organomegaly Edema: no edema noted Arm (L), no edema noted Arm (R), no edema noted Leg (L), no edema noted Leg (R), no edema noted Pedal (L), no edema noted Pedal (R), no edema noted 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
--- NOTE | 2019-04-16 10:01 | NUR ---
NURSE NOTES: relayed to dr Talley re mrsa skin +, awaiting response
[2019-04-16 12:00] VITALS: BP 127/68
--- NOTE | 2019-04-16 13:21 | Surgery Progress Note ---
Surgery Progress Note Subjective Additional Comments Patient seen and examined bedside. No acute events. States she is comfortable. Is standing up and using the bedside commode today. Denies any pain or discomfort. If has any issues states that she ordered a soda this morning is not received yet. Objective Last 24 Hour Vital Signs Date Time Temp Pulse Resp B/P (MAP) Pulse Ox O2 Delivery O2 Flow Rate FiO2 04/16/19 12:00 98.5 74 20 127/68 (87) 99 04/16/19 09:00 Room Air 04/16/19 08:29 122/63 04/16/19 08:28 70 122/63 04/16/19 08:00 98.3 70 20 122/63 (82) 99 04/16/19 06:00 66 119/57 04/16/19 04:00 97.8 66 20 120/61 (80) 98 04/16/19 00:00 98.7 72 20 107/64 (78) 97 04/15/19 21:36 80 104/57 04/15/19 21:00 Room Air 04/15/19 20:28 130/73 04/15/19 20:00 99.0 73 20 130/73 (92) 94 04/15/19 17:09 65 117/67 04/15/19 16:00 98.0 65 20 117/67 (84) 97 04/15/19 13:23 67 120/69 I&O Intake and Output 04/15/19 04/16/19 18:59 06:59 Intake Total 357.500 ml Balance 357.500 ml Intake IV Total 357.500 ml # Bowel Movements 1 Dressing: saturated Wound: clean Cardiovascular: RSR Respiratory: clear Abdomen: soft, flat, non-tender, present bowel sounds Extremities: no edema, no tenderness, no cyanosis Laboratory Tests Test 04/16/19 02:05 04/16/19 04:30 Vancomycin Level Trough 12.9 ug/mL (5.0-12.0) H White Blood Count 5.6 K/UL (4.8-10.8) Red Blood Count 3.83 M/UL (4.20-5.40) L Hemoglobin 11.5 G/DL (12.0-16.0) L Hematocrit 35.4 % (37.0-47.0) L Mean Corpuscular Volume 93 FL (80-99) Mean Corpuscular Hemoglobin 30.1 PG (27.0-31.0) Mean Corpuscular Hemoglobin Concent 32.5 G/DL (32.0-36.0) Red Cell Distribution Width 12.5 % (11.6-14.8) Platelet Count 266 K/UL (150-450) Mean Platelet Volume 7.0 FL (6.5-10.1) Neutrophils (%) (Auto) 37.7 % (45.0-75.0) L Lymphocytes (%) (Auto) 38.6 % (20.0-45.0) Monocytes (%) (Auto) 11.2 % (1.0-10.0) H Eosinophils (%) (Auto) 11.1 % (0.0-3.0) H Basophils (%) (Auto) 1.4 % (0.0-2.0) Erythrocyte Sedimentation Rate 30 MM/HR (0-30) Prothrombin Time 9.8 SEC (9.30-11.50) Prothromb Time International Ratio 0.9 (0.9-1.1) Activated Partial Thromboplast Time 27 SEC (23-33) Sodium Level 145 MMOL/L (136-145) Potassium Level 4.1 MMOL/L (3.5-5.1) Chloride Level 110 MMOL/L (98-107) H Carbon Dioxide Level 28 MMOL/L (21-32) Anion Gap 7 mmol/L (5-15) Blood Urea Nitrogen 13 mg/dL (7-18) Creatinine 1.2 MG/DL (0.55-1.30) Estimat Glomerular Filtration Rate mL/min (>60) Glucose Level 51 MG/DL (74-106) L Calcium Level 10.0 MG/DL (8.5-10.1) Total Bilirubin 0.2 MG/DL (0.2-1.0) Aspartate Amino Transf (AST/SGOT) 13 U/L (15-37) L Alanine Aminotransferase (ALT/SGPT) 13 U/L (12-78) Alkaline Phosphatase 83 U/L (46-116) C-Reactive Protein, Quantitative 0.8 mg/dL (0.00-0.90) Total Protein 6.2 G/DL (6.4-8.2) L Albumin 3.0 G/DL (3.4-5.0) L Globulin 3.2 g/dL Albumin/Globulin Ratio 0.9 (1.0-2.7) L Plan Problems: (1) Decubitus ulcer Assessment & Plan: 73-year-old female with a foul-smelling right buttock full- thickness stage 3 decubitus ulcer approximately 3 cm x 3 cm with 100% slough. Periwound intact. No purulent drainage. Also has a small unstageable 1 cm x 2 cm left buttock decubitus ulcer as well. Periwound intact. No fluctuance. Nontender on palpation. Patient unsure how long she has had it for. Patient needs optimal nutritional supplementation to ensure healing of wounds. Will await nutritional evaluation and recommendations Patient states that she is able to move and does walk to the bedside commode. I spoke to patient and explained her how important is that she keeps turning herself and offloading pressure on areas of wound and bony prominences. Patient expressed understanding and states she will do her best. Wash right buttock wound with normal saline daily. Apply Thera honey and foam dressing. Will discuss with patient excisional versus non-excisional debridement Turn every 2 hours Offload pressure on heels with pillow Thank you for this consultation we will continue to follow with recommendations Additional Comments Continue with local wound care. Александр Garg Apr 16, 2019 13:20
[2019-04-16] MEDS: cefTRIAXone 1gm/D5W 55ml IVPB SCH ×2 (14:13)
--- NOTE | 2019-04-16 15:04 | NUR ---
NURSE NOTES:WOUND CARE NOTES:Pt presented on admission with full thickness pressure injury R ischium. Base of wound has 90% slough. Periwound indurated without erythema. Pt verbalized pain when perimeter of wound palpated. No odor or exudate noted.(L)3cm x (W)2.5cm. Excisional debridement of wound done at bedside by .Pt tolerated procedure.Small amt sanguineous exudate noted.Gauze packing in place and covered with Optifoam drsg.
[2019-04-16 16:50] VITALS: BP 118/68
--- NOTE | 2019-04-16 18:51 | NUR ---
NURSE NOTES: Dressing changed by wound nurse/CDI. will continue to monitor.
--- NOTE | 2019-04-16 19:17 | NUR ---
HAND-OFF: Report given to Jim CALVO.
--- NOTE | 2019-04-16 19:54 | NUR ---
NURSE NOTES: received patient awake,alert,verbal,resting in bed,with stable vital signs.
[2019-04-16 19:58] VITALS: BP 123/67
[2019-04-16] MEDS: Atorvastatin 20mg tab ORAL SCH (21:12)
--- NOTE | 2019-04-16 22:45 | Progress Note ---
DATE: 04/16/2019 SUBJECTIVE: Blood pressure parameters have improved. No dizziness. No hypotensive episodes noted. Pain of her right buttocks remains a concern. Wound care is ongoing. OBJECTIVE: VITAL SIGNS: Blood pressure 122/63, pulse 70, respirations 20, no fevers. LUNGS: Bilateral breath sounds. CARDIAC: Regular rhythm and rate. Normal S1, S2 with no new murmur. ABDOMEN: Soft. EXTREMITIES: There is no edema. LABORATORY DATA: White count 5.6, hemoglobin 11.5. Sodium 145, potassium 4.1, bicarb 28, BUN 13, creatinine 1.2, glucose 51. Albumin 3.0. IMPRESSION: 1. Cellulitis and abscess of right buttock. 2. Hypovolemia and sepsis with early shock, recovered. 3. Hypoglycemia. 4. Mild dehydration with borderline hypernatremia and hyperkalemia. 5. History of hypertension, now with controlled blood pressure. Off medications. PLAN: 1. Continue hold parameters for antihypertensives. 2. Cautious hydration with hypotonic IV fluids. 3. DVT prophylaxis. Jovan Rose M.D. DR: SVETA JOB#: [id number] CC:
[2019-04-17 00:15] VITALS: BP 116/58
[2019-04-17] MEDS: Vancomycin 750mg/NS 275ml IVPB SCH ×4 (03:01→15:38)
[2019-04-17 04:13] VITALS: BP 120/60
[2019-04-17] MEDS: GlipiZIDE 5mg tab ORAL SCH ×2 (06:09→17:28)
--- NOTE | 2019-04-17 07:08 | NUR ---
HAND-OFF: Report given to LUBNA Winkler. Addendum: 04/17/19 at 0727 by AZUL VILLEDA RN HAND-OFF: Written Report given to Mir Mckeon RN .
[2019-04-17 08:00] VITALS: BP 125/72
--- NOTE | 2019-04-17 08:23 | NUR ---
NURSE NOTES: Patient is alert and oriented. No reports of discomfort at the moment. Side rails are upx2, bed is locked, in lowest position, and call light is within reach. Will continue to monitor.
--- NOTE | 2019-04-17 09:08 | General Progress Note ---
Assessment/Plan Problem List: (1) UTI (urinary tract infection) ICD Codes: N39.0 - Urinary tract infection, site not specified SNOMED: [id number] Qualifiers: Qualified Codes: N39.0 - Urinary tract infection, site not specified (2) COPD (chronic obstructive pulmonary disease) ICD Codes: J44.9 - Chronic obstructive pulmonary disease, unspecified SNOMED: [id number] Qualifiers: Qualified Codes: J44.9 - Chronic obstructive pulmonary disease, unspecified (3) Decubitus ulcer ICD Codes: L89.90 - Pressure ulcer of unspecified site, unspecified stage SNOMED: [id number] Qualifiers: Qualified Codes: L89.210 - Pressure ulcer of right hip, unstageable (4) Sacral decubitus ulcer ICD Codes: L89.159 - Pressure ulcer of sacral region, unspecified stage SNOMED: [id number] Status: stable, progressing Assessment/Plan: iv abx follow up cultures wound care pain rx ID eval pending Subjective ROS Limited/Unobtainable: No Constitutional: Reports: malaise, weakness HEENT: Reports: no symptoms Cardiovascular: Reports: no symptoms Respiratory: Reports: no symptoms Gastrointestinal/Abdominal: Reports: no symptoms Genitourinary: Reports: no symptoms Neurologic/Psychiatric: Reports: no symptoms Endocrine: Reports: no symptoms Hematologic/Lymphatic: Reports: no symptoms Allergies: Coded Allergies: No Known Allergies (Unverified , 04/14/19) All Systems: reviewed and negative except above Subjective no events. w/o complaints. right buttocks pain. getting wound care. cultures noted. no fevers Objective Last 24 Hour Vital Signs Date Time Temp Pulse Resp B/P (MAP) Pulse Ox O2 Delivery O2 Flow Rate FiO2 04/17/19 06:09 66 120/60 04/17/19 04:13 97.8 66 18 120/60 (80) 94 04/17/19 00:15 98.1 65 18 116/58 (77) 96 04/16/19 21:12 123/67 04/16/19 21:11 65 123/67 04/16/19 20:31 Room Air 04/16/19 19:58 97.3 65 18 123/67 (85) 100 04/16/19 17:14 70 118/68 04/16/19 16:50 98.5 70 20 118/68 (85) 99 04/16/19 14:11 74 127/68 04/16/19 12:00 98.5 74 20 127/68 (87) 99 Intake and Output 04/16/19 04/17/19 19:00 07:00 Intake Total 1190.000 ml 1695.000 ml Balance 1190.000 ml 1695.000 ml Intake Oral 860 ml 420 ml IV Total 330.000 ml 1275.000 ml # Voids 6 5 # Bowel Movements 1 1 Height (Feet): 5 Height (Inches): 5.00 Weight (Pounds): 140 Objective General Appearance: WD/WN, alert Neck: supple Cardiovascular: normal rate, regular rhythm Respiratory/Chest: chest wall non-tender, lungs clear Abdomen: normal bowel sounds, non tender, soft, no organomegaly Edema: no edema noted Arm (L), no edema noted Arm (R), no edema noted Leg (L), no edema noted Leg (R), no edema noted Pedal (L), no edema noted Pedal (R), no edema noted 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
[2019-04-17] MEDS: Sertraline 100mg tab ORAL SCH (09:26)
[2019-04-17] MEDS: Losartan 25mg tab ORAL SCH ×2 (09:28→21:00)
[2019-04-17] MEDS: cefTRIAXone 1gm/D5W 55ml IVPB SCH ×2 (09:29)
[2019-04-17] MEDS: Heparin 5000 units/ml inj SUBQ SCH ×2 (09:29→21:21)
--- NOTE | 2019-04-17 09:59 | NUR ---
NURSE NOTES: Dressing changed on right buttock per wound care order. Patient tolerated. Will continue to monitor.
--- NOTE | 2019-04-17 11:23 | NUR ---
*-* INSURANCE *-* ALL AVAILABLE CLINICALS HAVE BEEN FAXED TO: [employer] or tracking# assigned yet #[phone]
[2019-04-17 12:00] VITALS: BP 120/70
--- NOTE | 2019-04-17 15:25 | Surgery Progress Note ---
Surgery Progress Note Subjective Additional Comments omar cute events comfortable stable Objective Last 24 Hour Vital Signs Date Time Temp Pulse Resp B/P (MAP) Pulse Ox O2 Delivery O2 Flow Rate FiO2 04/17/19 14:00 72 114/65 04/17/19 12:00 98.7 75 18 120/70 (87) 96 04/17/19 09:28 125/72 04/17/19 09:28 80 125/72 04/17/19 09:00 Room Air 04/17/19 08:00 97.6 80 18 125/72 (89) 95 04/17/19 06:09 66 120/60 04/17/19 04:13 97.8 66 18 120/60 (80) 94 04/17/19 00:15 98.1 65 18 116/58 (77) 96 04/16/19 21:12 123/67 04/16/19 21:11 65 123/67 04/16/19 20:31 Room Air 04/16/19 19:58 97.3 65 18 123/67 (85) 100 04/16/19 17:14 70 118/68 04/16/19 16:50 98.5 70 20 118/68 (85) 99 I&O Intake and Output 04/16/19 04/17/19 18:59 06:59 Intake Total 1190.000 ml 1695.000 ml Balance 1190.000 ml 1695.000 ml Intake Oral 860 ml 420 ml IV Total 330.000 ml 1275.000 ml # Voids 6 5 # Bowel Movements 1 1 Dressing: dry Wound: clean Cardiovascular: RSR Respiratory: clear Abdomen: soft, flat, non-tender, present bowel sounds Extremities: no edema, no tenderness, no cyanosis Plan Problems: (1) Decubitus ulcer Assessment & Plan: 73-year-old female with a foul-smelling right buttock full- thickness stage 3 decubitus ulcer approximately 3 cm x 3 cm with 100% slough. Periwound intact. No purulent drainage. Also has a small unstageable 1 cm x 2 cm left buttock decubitus ulcer as well. Periwound intact. No fluctuance. Nontender on palpation. Patient unsure how long she has had it for. Pt presented on admission with full thickness pressure injury R ischium. Base of wound has 90% slough. Periwound indurated without erythema. Pt verbalized pain when perimeter of wound palpated. No odor or exudate noted.(L)3cm x (W) 2.5cm. Excisional debridement of wound done at bedside by .Pt tolerated procedure.Small amt sanguineous exudate noted.Gauze packing in place and covered with Optifoam drsg. Patient needs optimal nutritional supplementation to ensure healing of wounds. Will await nutritional evaluation and recommendations Patient states that she is able to move and does walk to the bedside commode. I spoke to patient and explained her how important is that she keeps turning herself and offloading pressure on areas of wound and bony prominences. Patient expressed understanding and states she will do her best. Wash right buttock wound with normal saline daily. Apply Thera honey and foam dressing. Will discuss with patient excisional versus non-excisional debridement Turn every 2 hours Offload pressure on heels with pillow Thank you for this consultation we will continue to follow with recommendations Александр Garg Apr 17, 2019 15:25
[2019-04-17 16:00] VITALS: BP 134/62
--- NOTE | 2019-04-17 16:37 | NUR ---
CASE MANAGEMENT:REVIEW 73 YR OLD FEMALE BIBA FROM [facility] SI: COPD. UTI SACRAL DECUB ULCER 98.6 92 19 89/53 96% ON 2L/NC IS: 1L NS BOLUS DUONEB HHN IV ZOFRAN IV MORPHINE URINE CX CXR URINE CX : TO MED/SURG 4 [facility] 04/16/19 SI:COPD. UTI. SACRAL DECUB 98.5 74 20 127/68 99% ON RA IS: IV ROCEPHIN QD IV VANCOMYCIN Q12 COZAAR PO Q12 ZOLOFT PO QD NORVASC PO BID RISPERDAL PO BID : MED/SURG STATUS 4 [facility]
--- NOTE | 2019-04-17 16:47 | NUR ---
CASE MANAGEMENT:REVIEW 04/17/19 SI:COPD. UTI. SACRAL DECUB 98.7 75 18 120/70 96% ON RA IS: IV ROCEPHIN QD IV VANCOMYCIN Q12 COZAAR PO Q12 ZOLOFT PO QD NORVASC PO BID RISPERDAL PO BID : MED/SURG STATUS 4 [facility]: WOUND CARE PER SURGEON
--- NOTE | 2019-04-17 18:30 | Consultation ---
DATE OF CONSULTATION: 04/17/2019 INFECTIOUS DISEASES CONSULTATION CONSULTING PHYSICIAN: Bharat Gardiner M.D. REFERRING PHYSICIAN: Trevor Talley M.D. REASON FOR CONSULTATION: Right buttock ulcer and abscess. HISTORY OF PRESENTING ILLNESS: This is a 73-year-old lady with history of diabetes, hypertension, who came in with right buttock pain. She was noted to have an ulcer there and an abscess. An Infectious Diseases consultation has been obtained for antibiotics. PAST MEDICAL HISTORY: 1. History of diabetes. 2. Hypertension. SOCIAL HISTORY: She does not smoke, drink, or use drugs. FAMILY HISTORY: Unknown. REVIEW OF SYSTEMS: Unable to obtain currently. MEDICATIONS: As an inpatient, she is on ceftriaxone, labetalol, losartan, milk of magnesia, sertraline, Protonix, glipizide, IV vancomycin, subcutaneous heparin, atorvastatin, morphine, amlodipine, and Risperdal. ALLERGIES: No known drug allergies. PHYSICAL EXAMINATION: VITAL SIGNS: Temperature of 97.6, T-max of 98.5, pulse of 80, respiratory rate of 18, blood pressure 125/72, and O2 saturation of 95%. HEENT: Pupils equally reactive to light and accommodation. Mouth appears clean without thrush. NECK: Supple. No adenopathy. No JVD. CARDIOVASCULAR: Regular rate and rhythm. No murmurs. LUNGS: Clear to auscultation bilaterally. No crackles. No wheezes. ABDOMEN: Soft and nontender. No organomegaly. Right buttock ulcer with drainage noted. LABORATORY AND DIAGNOSTIC DATA: White count 5.6, hemoglobin 11.5, hematocrit 35.4, MCV 93, platelet count of 266. Sodium 145, potassium 4.1, chloride 110, bicarb 28, BUN 13, creatinine 1.2, glucose 51, calcium of 10. Total bilirubin 0.2. AST 13, ALT 13, alkaline phosphatase 83. C-reactive protein of 0.8. Total protein 6.2. Albumin of 3. Lipase of 136. UA showing 30 to 40 white cells. Nasal swab was negative for MRSA. Rectal swab was negative for VRE. Wound culture is positive for MRSA. 04/14/2019 urine culture is growing Citrobacter, which is susceptible to ceftriaxone. 04/14/2019 blood cultures are negative. Chest x-ray showing no acute disease. ASSESSMENT: This is a 73-year-old lady with history of diabetes and hypertension, who comes in with, 1. Right buttock ulcer and abscess growing MRSA, she has been seen by Surgery. 2. Citrobacter urinary tract infection. 3. Diabetes. 4. Hypertension. PLAN: 1. Continue IV vancomycin. 2. Continue ceftriaxone. 3. We will follow up cultures. I would like to thank, Dr. Talley, for this consultation. Bharat Gardiner M.D. DR: MISTY JOB#: [id number] CC: Trevor Talley M.D.
--- NOTE | 2019-04-17 19:46 | NUR ---
NURSE NOTES: Received patient awake,alert,verbal,resting in bed,comfortable.
[2019-04-17 19:49] VITALS: BP 107/55
--- NOTE | 2019-04-17 19:54 | NUR ---
HAND-OFF: Report given to LUBNA Comer.
[2019-04-17] MEDS: Atorvastatin 20mg tab ORAL SCH (21:21)
--- NOTE | 2019-04-17 23:30 | Progress Note ---
DATE: 04/17/2019 CARDIOLOGY PROGRESS NOTE SUBJECTIVE: The patient with no fever, still getting wound care. No shortness of breath. OBJECTIVE: VITAL SIGNS: Blood pressure 120/60, pulse rate 66, respiratory rate 18, afebrile. LUNGS: Clear. CARDIAC: Regular. Normal S1, S2 with a fourth heart sound. ABDOMEN: Soft. EXTREMITIES: No edema. SKIN: Wound site has dressing in place. IMPRESSION: 1. Cellulitis and abscess, right buttock. 2. Early shock due to sepsis and hypovolemia, resolved. 3. Dehydration and hypernatremia, corrected. 4. Hypertensive heart disease with controlled blood pressure. PLAN: 1. Maintenance hydration. 2. Antimicrobials. 3. Wound care. 4. DVT prophylaxis. 5. Titrate antihypertensives based on clinical parameters. Jovan Rose M.D. DR: QUIN JOB#: [id number] CC:
[2019-04-18] VITALS: BP 97/56
[2019-04-18] MEDS: Vancomycin 750mg/NS 275ml IVPB SCH ×4 (02:29→14:07)
[2019-04-18 04:09] VITALS: BP 134/67
[2019-04-18] MEDS: GlipiZIDE 5mg tab ORAL SCH ×2 (05:18→17:06)
--- NOTE | 2019-04-18 07:24 | NUR ---
HAND-OFF: Report given to Earl Byrnes RN.
--- NOTE | 2019-04-18 07:39 | NUR ---
NURSE NOTES: Received report from LUBNA Comer. Patient in bed resting, no active s/s cardiac, respiratory distress noticed at this time. Patient AOx4, on room air, denies pain at this time. IV on right FA 20G, asymptomatic, patent, intact. Bed in lowest position, side rails upx2, call light within reach. Will continue to monitor.
[2019-04-18 08:00] VITALS: BP 121/63
[2019-04-18] MEDS: cefTRIAXone 1gm/D5W 55ml IVPB SCH ×2 (09:30)
[2019-04-18] MEDS: Sertraline 100mg tab ORAL SCH (09:31)
[2019-04-18] MEDS: Losartan 25mg tab ORAL SCH ×2 (09:31→21:00)
[2019-04-18] MEDS: Heparin 5000 units/ml inj SUBQ SCH ×2 (09:32→21:13)
--- NOTE | 2019-04-18 09:32 | General Progress Note ---
Assessment/Plan Problem List: (1) UTI (urinary tract infection) ICD Codes: N39.0 - Urinary tract infection, site not specified SNOMED: 71875969 Qualifiers: Qualified Codes: N39.0 - Urinary tract infection, site not specified (2) COPD (chronic obstructive pulmonary disease) ICD Codes: J44.9 - Chronic obstructive pulmonary disease, unspecified SNOMED: 40577377 Qualifiers: Qualified Codes: J44.9 - Chronic obstructive pulmonary disease, unspecified (3) Decubitus ulcer ICD Codes: L89.90 - Pressure ulcer of unspecified site, unspecified stage SNOMED: 044564963 Qualifiers: Qualified Codes: L89.210 - Pressure ulcer of right hip, unstageable (4) Sacral decubitus ulcer ICD Codes: L89.159 - Pressure ulcer of sacral region, unspecified stage SNOMED: 627815590 Status: stable, progressing Assessment/Plan: iv abx follow up cultures wound care pain rx ID eval appreciated Subjective ROS Limited/Unobtainable: No Constitutional: Reports: weakness HEENT: Reports: no symptoms Cardiovascular: Reports: no symptoms Respiratory: Reports: no symptoms Gastrointestinal/Abdominal: Reports: no symptoms Genitourinary: Reports: no symptoms Neurologic/Psychiatric: Reports: no symptoms Endocrine: Reports: no symptoms Hematologic/Lymphatic: Reports: no symptoms Allergies: Coded Allergies: No Known Allergies (Unverified , 04/14/19) All Systems: reviewed and negative except above Subjective no events. right buttocks pain. getting wound care. cultures noted. no fevers s/p I and D by surgery Objective Last 24 Hour Vital Signs Date Time Temp Pulse Resp B/P (MAP) Pulse Ox O2 Delivery O2 Flow Rate FiO2 04/18/19 05:19 70 134/67 04/18/19 04:09 98.1 70 16 134/67 (89) 98 04/18/19 00:00 98.1 88 18 97/56 (70) 100 04/17/19 21:21 75 107/55 04/17/19 21:00 107/55 04/17/19 20:23 Room Air 04/17/19 19:49 99.0 75 18 107/55 (72) 94 04/17/19 17:28 73 130/67 04/17/19 16:00 98.8 71 18 134/62 (86) 100 04/17/19 14:00 72 114/65 04/17/19 12:00 98.7 75 18 120/70 (87) 96 Intake and Output 04/17/19 04/18/19 19:00 07:00 Intake Total 500 ml 275.000 ml Output Total 300 ml Balance 200 ml 275.000 ml Intake Oral 500 ml IV Total 275.000 ml Output Urine Total 300 ml # Voids 3 2 # Bowel Movements 1 1 Height (Feet): 5 Height (Inches): 5.00 Weight (Pounds): 138 Objective General Appearance: WD/WN, alert Neck: supple Cardiovascular: normal rate, regular rhythm Respiratory/Chest: chest wall non-tender, lungs clear Abdomen: normal bowel sounds, non tender, soft, no organomegaly Edema: no edema noted Arm (L), no edema noted Arm (R), no edema noted Leg (L), no edema noted Leg (R), no edema noted Pedal (L), no edema noted Pedal (R), no edema noted 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
[2019-04-18 12:00] VITALS: BP 124/70
--- NOTE | 2019-04-18 13:59 | NUR ---
CASE MANAGEMENT:REVIEW 04/18/19 SI:COPD. UTI. SACRAL DECUB S/P EXCISIONAL DEBRIDEMENT 97.8 71 17 121/63 99% ON RA IS: IV ROCEPHIN QD IV VANCOMYCIN Q12 COZAAR PO Q12 ZOLOFT PO QD NORVASC PO BID RISPERDAL PO BID : MED/SURG STATUS 4 EAST DCP: FROM [facility] B&C PLAN: WOUND CARE~ WASH W/NS DAILY..APPLY THERA HONEY AND FOAM DRESSING
--- NOTE | 2019-04-18 14:15 | NUR ---
RD ASSESSMENT & RECOMMENDATIONS SEE CARE ACTIVITY FOR COMPLETE ASSESSMENT DAILY ESTIMATED NEEDS: Needs based on Wound/ 65kg 25-30 kcals/kg 2408-7674 total kcals 1.3-1.8 g protein/kg 85-117 g total protein 25-30 mL/kg 0637-8808 total fluid mLs NUTRITION DIAGNOSIS: Increased kcal/prot needs R/T wound healing as evidenced by pt admitted w/ stage 3 R ischium wound, s/p excisional debridement and small unstageable wound @ L buttock. CURRENT DIET:CCHO LOW, soft easy chew PO DIET RECOMMENDATIONS: CCHO MED/ texture as tolerated ADDITIONAL RECOMMENDATIONS: * Wound healing: add MVI w/ min 1 tab QD add Vit C 500mg QD add ZnSO4 220mg QD x 10 days Lopez 1pkt BID added to tray * A1C for eval of glycemic control * Consider accucheck + SSI: h/o DM * Snacks TID in b/w meals to prevent hypoglycemia * F/up CBC and BMP as able (last done on 04/16)
[2019-04-18 16:00] VITALS: BP 118/72
--- NOTE | 2019-04-18 19:10 | NUR ---
HAND-OFF: Report given to LUBNA Comer.
--- NOTE | 2019-04-18 19:51 | NUR ---
NURSE NOTES: Received patient awake,alert,verbal,resting in bed, comfortable.
[2019-04-18 20:00] VITALS: BP 119/57
[2019-04-18] MEDS: Atorvastatin 20mg tab ORAL SCH (21:12)
--- NOTE | 2019-04-18 21:58 | Surgery Progress Note ---
Surgery Progress Note Subjective Symptoms: improved, voiding well, passing flatus Objective Last 24 Hour Vital Signs Date Time Temp Pulse Resp B/P (MAP) Pulse Ox O2 Delivery O2 Flow Rate FiO2 04/18/19 21:13 76 119/57 04/18/19 21:00 119/57 04/18/19 20:00 99.0 76 16 119/57 (77) 95 04/18/19 17:07 72 118/72 04/18/19 16:00 99.2 72 18 118/72 (87) 96 04/18/19 14:06 76 124/70 04/18/19 12:00 97.0 76 18 124/70 (88) 96 04/18/19 09:32 71 123/70 04/18/19 09:31 123/70 04/18/19 09:00 Room Air 04/18/19 08:00 97.8 71 17 121/63 (82) 99 04/18/19 05:19 70 134/67 04/18/19 04:09 98.1 70 16 134/67 (89) 98 04/18/19 00:00 98.1 88 18 97/56 (70) 100 I&O Intake and Output 04/17/19 04/18/19 19:00 07:00 Intake Total 500 ml 275.000 ml Output Total 300 ml Balance 200 ml 275.000 ml Intake Oral 500 ml IV Total 275.000 ml Output Urine Total 300 ml # Voids 3 2 # Bowel Movements 1 1 Dressing: saturated Wound: clean Cardiovascular: RSR Respiratory: clear Abdomen: soft, non-tender, present bowel sounds Extremities: no cyanosis, other Plan Problems: (1) Decubitus ulcer Assessment & Plan: 73-year-old female with a foul-smelling right buttock full- thickness stage 3 decubitus ulcer approximately 3 cm x 3 cm with 100% slough. Periwound intact. No purulent drainage. Also has a small unstageable 1 cm x 2 cm left buttock decubitus ulcer as well. Periwound intact. No fluctuance. Nontender on palpation. Patient unsure how long she has had it for. Pt presented on admission with full thickness pressure injury R ischium. Base of wound has 90% slough. Periwound indurated without erythema. Pt verbalized pain when perimeter of wound palpated. No odor or exudate noted.(L)3cm x (W) 2.5cm. Excisional debridement of wound done at bedside by .Pt tolerated procedure.Small amt sanguineous exudate noted.Gauze packing in place and covered with Optifoam drsg. Patient states that she is able to move and does walk to the bedside commode. I spoke to patient and explained her how important is that she keeps turning herself and offloading pressure on areas of wound and bony prominences. Patient expressed understanding and states she will do her best. Wash right buttock wound with normal saline daily. Apply Thera honey and foam dressing. Will discuss with patient excisional versus non-excisional debridement Turn every 2 hours Offload pressure on heels with pillow Thank you for this consultation we will continue to follow with recommendations (2) Sacral decubitus ulcer Assessment & Plan: DAILY ESTIMATED NEEDS: Needs based on Wound/ 65kg 25-30 kcals/kg 0482-2031 total kcals 1.3-1.8 g protein/kg 85-117 g total protein 25-30 mL/kg 6722-1043 total fluid mLs NUTRITION DIAGNOSIS: Increased kcal/prot needs R/T wound healing as evidenced by pt admitted w/ stage 3 R ischium wound, s/p excisional debridement and small unstageable wound @ L buttock. CURRENT DIET:CCHO LOW, soft easy chew PO DIET RECOMMENDATIONS: CCHO MED/ texture as tolerated ADDITIONAL RECOMMENDATIONS: * Wound healing: add MVI w/ min 1 tab QD add Vit C 500mg QD add ZnSO4 220mg QD x 10 days Lopez 1pkt BID added to tray * A1C for eval of glycemic control * Consider accucheck + SSI: h/o DM * Snacks TID in b/w meals to prevent hypoglycemia * F/up CBC and BMP as able (last done on 04/16) Александр Garg Apr 18, 2019 21:58
[2019-04-19] VITALS (7 sets, daily range): BP systolic 96–135; BP diastolic 55–87
--- NOTE | 2019-04-19 | Progress Note ---
DATE: 04/18/2019 CARDIOLOGY PROGRESS NOTE SUBJECTIVE: The patient has continued pain of her buttocks. She continues with wound care. She has no fevers. She has no chest pain. She has no shortness of breath. OBJECTIVE: VITAL SIGNS: Blood pressure 134/67, pulse 70, and respirations 16. HEENT: Conjunctivae pink. Oropharynx clear. NECK: Supple. LUNGS: Clear. CARDIAC: Regular. Normal S1, S2. There is no new murmur. ABDOMEN: Soft. EXTREMITIES: No edema. LABORATORY DATA: No new laboratories today. IMPRESSIONS: 1. Cellulitis and abscess of right buttocks. 2. Hypertensive heart disease. 3. Chronic diastolic congestive heart failure. 4. Mild protein-calorie malnutrition. PLAN: 1. Adjust IV fluids. 2. Titrate antihypertensives. 3. DVT prophylaxis. 4. Antimicrobials and wound care. Jovan Rose M.D. DR: MIKAEL JOB#: [id number] CC:
[2019-04-19] MEDS: Vancomycin 750mg/NS 275ml IVPB SCH ×4 (02:30→15:16)
[2019-04-19] MEDS: GlipiZIDE 5mg tab ORAL SCH ×2 (05:51→17:21)
[2019-04-19 06:37] LABS: BASOPHILS % (AUTO) 1.6 % (0.0-2.0); HEMATOCRIT 39.2 % (37.0-47.0); HEMOGLOBIN 12.9 G/DL (12.0-16.0); MEAN CORPUSCULAR VOLUME 93 FL (80-99); MONOCYTES % (AUTO) 9.4 % (1.0-10.0); PLATELET COUNT 253 K/UL (150-450); RED BLOOD COUNT 4.24 M/UL (4.20-5.40); RED CELL DISTRIBUTION WIDTH 13.1 % (11.6-14.8); WHITE BLOOD COUNT 5.6 K/UL (4.8-10.8)
[2019-04-19 07:08] LABS: ALANINE AMINOTRANSFERASE 17 U/L (12-78); ALBUMIN 3.3 G/DL (3.4-5.0); ALBUMIN/GLOBULIN RATIO 0.9 (1.0-2.7); ALKALINE PHOSPHATASE 88 U/L (46-116); ANION GAP 10 mmol/L (5-15); ASPARTATE AMINO TRANSFERASE 11 U/L (15-37); BILIRUBIN,TOTAL 0.3 MG/DL (0.2-1.0); BLOOD UREA NITROGEN 22 mg/dL (7-18); CALCIUM 10.1 MG/DL (8.5-10.1); CARBON DIOXIDE 24 MMOL/L (21-32); CHLORIDE 105 MMOL/L (98-107); POTASSIUM 4.1 MMOL/L (3.5-5.1); SODIUM 139 MMOL/L (136-145)
--- NOTE | 2019-04-19 07:22 | NUR ---
HAND-OFF: Report given to Momo Fofana RN.
--- NOTE | 2019-04-19 07:45 | General Progress Note ---
Assessment/Plan Problem List: (1) UTI (urinary tract infection) ICD Codes: N39.0 - Urinary tract infection, site not specified SNOMED: [id number] Qualifiers: Qualified Codes: N39.0 - Urinary tract infection, site not specified (2) COPD (chronic obstructive pulmonary disease) ICD Codes: J44.9 - Chronic obstructive pulmonary disease, unspecified SNOMED: 13365906 Qualifiers: Qualified Codes: J44.9 - Chronic obstructive pulmonary disease, unspecified (3) Decubitus ulcer ICD Codes: L89.90 - Pressure ulcer of unspecified site, unspecified stage SNOMED: 992000458 Qualifiers: Qualified Codes: L89.210 - Pressure ulcer of right hip, unstageable (4) Sacral decubitus ulcer ICD Codes: L89.159 - Pressure ulcer of sacral region, unspecified stage SNOMED: 029380665 Status: stable, progressing Assessment/Plan: iv abx follow up cultures wound care pain rx ID eval appreciated dc planing to [facility] if able to do wound care there Subjective ROS Limited/Unobtainable: No Constitutional: Reports: malaise, weakness HEENT: Reports: no symptoms Cardiovascular: Reports: no symptoms Respiratory: Reports: no symptoms Gastrointestinal/Abdominal: Reports: no symptoms Genitourinary: Reports: no symptoms Neurologic/Psychiatric: Reports: anxiety Endocrine: Reports: no symptoms Allergies: Coded Allergies: No Known Allergies (Unverified , 04/14/19) All Systems: reviewed and negative except above Subjective no events. right buttocks pain. getting wound care. cultures noted. no fevers s/p I and D by surgery. has decreased pain Objective Last 24 Hour Vital Signs Date Time Temp Pulse Resp B/P (MAP) Pulse Ox O2 Delivery O2 Flow Rate FiO2 04/19/19 05:51 77 114/62 04/19/19 04:00 99.1 77 16 114/62 (79) 95 04/19/19 00:09 98.4 75 16 110/55 (73) 96 04/18/19 21:13 76 119/57 04/18/19 21:00 119/57 04/18/19 21:00 Room Air 04/18/19 20:00 99.0 76 16 119/57 (77) 95 04/18/19 17:07 72 118/72 04/18/19 16:00 99.2 72 18 118/72 (87) 96 04/18/19 14:06 76 124/70 04/18/19 12:00 97.0 76 18 124/70 (88) 96 04/18/19 09:32 71 123/70 04/18/19 09:31 123/70 04/18/19 09:00 Room Air 04/18/19 08:00 97.8 71 17 121/63 (82) 99 Intake and Output 04/18/19 04/19/19 18:59 06:59 Intake Total 288 ml 275.000 ml Output Total 0 ml Balance 288 ml 275.000 ml Intake Oral 288 ml IV Total 275.000 ml Output Urine Total 0 ml # Voids 4 3 # Bowel Movements 1 Laboratory Tests 04/19/19 06:20: White Blood Count 5.6, Red Blood Count 4.24, Hemoglobin 12.9, Hematocrit 39.2, Mean Corpuscular Volume 93, Mean Corpuscular Hemoglobin 30.5, Mean Corpuscular Hemoglobin Concent 32.9, Red Cell Distribution Width 13.1, Platelet Count 253, Mean Platelet Volume 7.1, Neutrophils (%) (Auto) 50.0, Lymphocytes (%) (Auto) 30.0, Monocytes (%) (Auto) 9.4, Eosinophils (%) (Auto) 9.0H, Basophils (%) (Auto ) 1.6, Sodium Level 139, Potassium Level 4.1, Chloride Level 105, Carbon Dioxide Level 24, Anion Gap 10, Blood Urea Nitrogen 22H, Creatinine 1.0, Estimat Glomerular Filtration Rate , Glucose Level 118H, Calcium Level 10.1, Magnesium Level 1.8, Total Bilirubin 0.3, Aspartate Amino Transf (AST/SGOT) 11L , Alanine Aminotransferase (ALT/SGPT) 17, Alkaline Phosphatase 88, Pro-B-Type Natriuretic Peptide 142H, Total Protein 7.0, Albumin 3.3L, Globulin 3.7, Albumin /Globulin Ratio 0.9L Height (Feet): 5 Height (Inches): 5.00 Weight (Pounds): 138 Objective General Appearance: WD/WN, alert Neck: supple Cardiovascular: normal rate, regular rhythm Respiratory/Chest: chest wall non-tender, lungs clear Abdomen: normal bowel sounds, non tender, soft, no organomegaly Edema: no edema noted Arm (L), no edema noted Arm (R), no edema noted Leg (L), no edema noted Leg (R), no edema noted Pedal (L), no edema noted Pedal (R), no edema noted 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
--- NOTE | 2019-04-19 07:47 | NUR ---
NURSE NOTES: PT AXOX3, CALM, RESTING IN BED. PT HAS FINISHED BREAKFAST. DENIES ANY PAIN AT THIS TIME. BED IN LOWEST POSITION WITH BEDSIDE RAILS X2. COMMODE AT BEDSIDE. CALL LIGHT WITHIN REACH. WILL CONTINUE TO MONITOR.
[2019-04-19] MEDS: Sertraline 100mg tab ORAL SCH (08:25)
[2019-04-19] MEDS: Ascorbic Acid 500mg tab ORAL SCH (08:25)
[2019-04-19] MEDS: cefTRIAXone 1gm/D5W 55ml IVPB SCH ×2 (08:25)
[2019-04-19] MEDS: Zinc Sulfate 220mg cap ORAL SCH (08:26)
[2019-04-19] MEDS: Losartan 25mg tab ORAL SCH ×2 (08:26→20:41)
[2019-04-19] MEDS: Heparin 5000 units/ml inj SUBQ SCH ×2 (08:32→20:50)
--- NOTE | 2019-04-19 10:36 | Infectious Diseases Prog Note ---
Assessment/Plan Assessment/Plan A: 1. 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 Citrobacter urinary tract infection. 3. Diabetes. 4. Hypertension. P: 1. Continue IV vancomycin & ceftriaxone. 2. Wound care Subjective ROS Limited/Unobtainable: No Constitutional: Reports: no symptoms Respiratory: Reports: no symptoms Gastrointestinal/Abdominal: Reports: no symptoms Genitourinary: Reports: no symptoms Musculoskeletal: Reports: pain, other - in buttock area Allergies: Coded Allergies: No Known Allergies (Unverified , 04/14/19) Objective Vital Signs Last 24 Hour Vital Signs Date Time Temp Pulse Resp B/P (MAP) Pulse Ox O2 Delivery O2 Flow Rate FiO2 04/19/19 09:00 Room Air 04/19/19 08:26 135/87 04/19/19 08:25 89 135/87 04/19/19 08:00 98.1 89 17 135/87 (103) 100 04/19/19 05:51 77 114/62 04/19/19 04:00 99.1 77 16 114/62 (79) 95 04/19/19 00:09 98.4 75 16 110/55 (73) 96 04/18/19 21:13 76 119/57 04/18/19 21:00 119/57 04/18/19 21:00 Room Air 04/18/19 20:00 99.0 76 16 119/57 (77) 95 04/18/19 17:07 72 118/72 04/18/19 16:00 99.2 72 18 118/72 (87) 96 04/18/19 14:06 76 124/70 04/18/19 12:00 97.0 76 18 124/70 (88) 96 Height (Feet): 5 Height (Inches): 5.00 Weight (Pounds): 138 General Appearance: no acute distress HEENT: mucous membranes moist Respiratory/Chest: lungs clear Cardiovascular: normal rate Abdomen: soft, non tender Extremities: no edema Skin: ulcers Neurologic/Psychiatric: alert, responsive Laboratory Tests Test 04/19/19 06:20 White Blood Count 5.6 K/UL (4.8-10.8) Red Blood Count 4.24 M/UL (4.20-5.40) Hemoglobin 12.9 G/DL (12.0-16.0) Hematocrit 39.2 % (37.0-47.0) Mean Corpuscular Volume 93 FL (80-99) Mean Corpuscular Hemoglobin 30.5 PG (27.0-31.0) Mean Corpuscular Hemoglobin Concent 32.9 G/DL (32.0-36.0) Red Cell Distribution Width 13.1 % (11.6-14.8) Platelet Count 253 K/UL (150-450) Mean Platelet Volume 7.1 FL (6.5-10.1) Neutrophils (%) (Auto) 50.0 % (45.0-75.0) Lymphocytes (%) (Auto) 30.0 % (20.0-45.0) Monocytes (%) (Auto) 9.4 % (1.0-10.0) Eosinophils (%) (Auto) 9.0 % (0.0-3.0) H Basophils (%) (Auto) 1.6 % (0.0-2.0) Sodium Level 139 MMOL/L (136-145) Potassium Level 4.1 MMOL/L (3.5-5.1) Chloride Level 105 MMOL/L (98-107) Carbon Dioxide Level 24 MMOL/L (21-32) Anion Gap 10 mmol/L (5-15) Blood Urea Nitrogen 22 mg/dL (7-18) H Creatinine 1.0 MG/DL (0.55-1.30) Estimat Glomerular Filtration Rate mL/min (>60) Glucose Level 118 MG/DL (74-106) H Calcium Level 10.1 MG/DL (8.5-10.1) Magnesium Level 1.8 MG/DL (1.8-2.4) Total Bilirubin 0.3 MG/DL (0.2-1.0) Aspartate Amino Transf (AST/SGOT) 11 U/L (15-37) L Alanine Aminotransferase (ALT/SGPT) 17 U/L (12-78) Alkaline Phosphatase 88 U/L (46-116) Pro-B-Type Natriuretic Peptide 142 pg/mL (0-125) H Total Protein 7.0 G/DL (6.4-8.2) Albumin 3.3 G/DL (3.4-5.0) L Globulin 3.7 g/dL Albumin/Globulin Ratio 0.9 (1.0-2.7) L Current Medications Medications (Trade) Dose Ordered Sig/Katia Route PRN Reason Start Time Stop Time Status Last Admin Dose Admin Amlodipine Besylate (Norvasc) 5 mg BID ORAL 04/14/19 18:00 05/14/19 17:59 04/19/19 08:25 Ascorbic Acid (Vitamin C) 500 mg DAILY ORAL 04/19/19 09:00 05/19/19 08:59 04/19/19 08:25 Atorvastatin Calcium (Lipitor) 20 mg BEDTIME ORAL 04/14/19 21:00 05/14/19 20:59 04/18/19 21:12 Ceftriaxone Sodium 1 gm/ Dextrose 55 ml @ 110 mls/hr DAILY IVPB 04/16/19 14:00 04/23/19 13:59 04/19/19 08:25 Glipizide (Glucotrol) 5 mg BIAC ORAL 04/15/19 06:30 05/15/19 06:29 04/19/19 05:51 Heparin Sodium (Porcine) (Heparin 5000 units/ml) 5,000 units EVERY 12 HOURS SUBQ 04/14/19 21:00 05/14/19 20:59 04/18/19 21:13 Labetalol HCl (Normodyne) 100 mg Q8HR ORAL 04/15/19 22:00 05/15/19 21:59 04/18/19 14:06 Losartan Potassium (Cozaar) 25 mg EVERY 12 HOURS ORAL 04/15/19 21:00 05/15/19 20:59 04/19/19 08:26 Magnesium Hydroxide (Mom) 30 ml TIDPRN PRN ORAL Constipation 04/15/19 15:45 05/15/19 15:44 04/15/19 17:06 Morphine Sulfate (Morphine Sulfate) 1 mg Q4H PRN IVP Moderate Pain (Pain Scale 4-6) 04/14/19 18:45 04/21/19 18:44 04/15/19 14:53 Multivitamins (Multivitamins) 1 tab DAILY ORAL 04/19/19 09:00 05/19/19 08:59 04/19/19 08:25 Pantoprazole (Protonix) 40 mg DAILY ORAL 04/15/19 09:00 05/15/19 08:59 04/19/19 08:26 Risperidone (RisperDAL) 1 mg TWICE A DAY ORAL 04/14/19 18:00 05/14/19 17:59 04/19/19 08:26 Sertraline HCl (Zoloft) 100 mg DAILY ORAL 04/15/19 09:00 05/15/19 08:59 04/19/19 08:25 Vancomycin HCl (Vanco rx to dose) 1 ea DAILY PRN MISC Per rx protocol 04/14/19 18:00 05/14/19 17:59 Vancomycin HCl 750 mg/Sodium Chloride 275 ml @ 183.333 mls/hr Q12HR@0300,1500 IVPB 04/15/19 03:00 04/20/19 02:59 04/19/19 02:30 Zinc Sulfate (Zinc Sulfate) 220 mg DAILY ORAL 04/19/19 09:00 04/29/19 08:59 04/19/19 08:26 Alfredo Rubio MD Apr 19, 2019 10:36
--- NOTE | 2019-04-19 12:37 | NUR ---
CASE MANAGEMENT:REVIEW 04/19/19 SI:COPD. UTI. RT BUTTOCK ULCER & ABSCESS GROWING MRSA S/P EXCISIONAL DEBRIDEMENT 98.1 89 17 135/87 100% ON RA IS: IV ROCEPHIN QD IV VANCOMYCIN Q12 COZAAR PO Q12 ZOLOFT PO QD NORVASC PO BID RISPERDAL PO BID : MED/SURG STATUS 4 EAST DCP: FROM [facility] B&C PLAN: WOUND CARE~ WASH W/NS DAILY..APPLY THERA HONEY AND FOAM DRESSING CONTINUE IV VANCOMYCIN AND ROCEPHIN DC PLANNING TO RETURN TO [facility] IF ABLE TO DO WOUND CARE THERE
--- NOTE | 2019-04-19 12:44 | NUR ---
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
--- NOTE | 2019-04-19 14:32 | NUR ---
*-* INSURANCE *-* ALL AVAILABLE CLINICALS HAVE BEEN FAXED TO: Steffen No Treater or tracking# assigned yet #[phone]
--- NOTE | 2019-04-19 16:46 | NUR ---
NURSE NOTES:WOUND CARE FOLLOW-UP NOTES: Full thickness wound R ischium resolving. Base of wound is moist viable, surroundg are without erythema or induration. Pt denied tenderness when palpated (L)1cm x (W)1cm x (D)0.8cm. No new skin concerns noted.
--- NOTE | 2019-04-19 17:39 | Surgery Progress Note ---
Surgery Progress Note Subjective Symptoms: improved, tolerating diet, voiding well, passing flatus, BM Objective Last 24 Hour Vital Signs Date Time Temp Pulse Resp B/P (MAP) Pulse Ox O2 Delivery O2 Flow Rate FiO2 04/19/19 17:21 78 110/76 04/19/19 16:00 98.3 78 19 110/76 (87) 100 04/19/19 14:00 73 111/57 04/19/19 12:00 98.2 73 18 111/57 (75) 97 04/19/19 09:00 Room Air 04/19/19 08:26 135/87 04/19/19 08:25 89 135/87 04/19/19 08:00 98.1 89 17 135/87 (103) 100 04/19/19 05:51 77 114/62 04/19/19 04:00 99.1 77 16 114/62 (79) 95 04/19/19 00:09 98.4 75 16 110/55 (73) 96 04/18/19 21:13 76 119/57 04/18/19 21:00 119/57 04/18/19 21:00 Room Air 04/18/19 20:00 99.0 76 16 119/57 (77) 95 I&O Intake and Output 04/18/19 04/19/19 19:00 07:00 Intake Total 288 ml 275.000 ml Output Total 0 ml Balance 288 ml 275.000 ml Intake Oral 288 ml IV Total 275.000 ml Output Urine Total 0 ml # Voids 4 3 # Bowel Movements 1 Dressing: saturated Wound: clean Cardiovascular: RSR Respiratory: clear Abdomen: soft, flat, non-tender, present bowel sounds Extremities: no edema, no tenderness, no cyanosis Laboratory Tests Test 04/19/19 06:20 White Blood Count 5.6 K/UL (4.8-10.8) Red Blood Count 4.24 M/UL (4.20-5.40) Hemoglobin 12.9 G/DL (12.0-16.0) Hematocrit 39.2 % (37.0-47.0) Mean Corpuscular Volume 93 FL (80-99) Mean Corpuscular Hemoglobin 30.5 PG (27.0-31.0) Mean Corpuscular Hemoglobin Concent 32.9 G/DL (32.0-36.0) Red Cell Distribution Width 13.1 % (11.6-14.8) Platelet Count 253 K/UL (150-450) Mean Platelet Volume 7.1 FL (6.5-10.1) Neutrophils (%) (Auto) 50.0 % (45.0-75.0) Lymphocytes (%) (Auto) 30.0 % (20.0-45.0) Monocytes (%) (Auto) 9.4 % (1.0-10.0) Eosinophils (%) (Auto) 9.0 % (0.0-3.0) H Basophils (%) (Auto) 1.6 % (0.0-2.0) Sodium Level 139 MMOL/L (136-145) Potassium Level 4.1 MMOL/L (3.5-5.1) Chloride Level 105 MMOL/L (98-107) Carbon Dioxide Level 24 MMOL/L (21-32) Anion Gap 10 mmol/L (5-15) Blood Urea Nitrogen 22 mg/dL (7-18) H Creatinine 1.0 MG/DL (0.55-1.30) Estimat Glomerular Filtration Rate mL/min (>60) Glucose Level 118 MG/DL (74-106) H Calcium Level 10.1 MG/DL (8.5-10.1) Magnesium Level 1.8 MG/DL (1.8-2.4) Total Bilirubin 0.3 MG/DL (0.2-1.0) Aspartate Amino Transf (AST/SGOT) 11 U/L (15-37) L Alanine Aminotransferase (ALT/SGPT) 17 U/L (12-78) Alkaline Phosphatase 88 U/L (46-116) Pro-B-Type Natriuretic Peptide 142 pg/mL (0-125) H Total Protein 7.0 G/DL (6.4-8.2) Albumin 3.3 G/DL (3.4-5.0) L Globulin 3.7 g/dL Albumin/Globulin Ratio 0.9 (1.0-2.7) L Plan Problems: (1) Decubitus ulcer Assessment & Plan: 73-year-old female with a foul-smelling right buttock full- thickness stage 3 decubitus ulcer approximately 3 cm x 3 cm with 100% slough. Periwound intact. No purulent drainage. Also has a small unstageable 1 cm x 2 cm left buttock decubitus ulcer as well. Periwound intact. No fluctuance. Nontender on palpation. Patient unsure how long she has had it for. Pt presented on admission with full thickness pressure injury R ischium. Base of wound has 90% slough. Periwound indurated without erythema. Pt verbalized pain when perimeter of wound palpated. No odor or exudate noted.(L)3cm x (W) 2.5cm. Excisional debridement of wound done at bedside by .Pt tolerated procedure.Small amt sanguineous exudate noted.Gauze packing in place and covered with Optifoam drsg. Patient states that she is able to move and does walk to the bedside commode. I spoke to patient and explained her how important is that she keeps turning herself and offloading pressure on areas of wound and bony prominences. Patient expressed understanding and states she will do her best. Wash right buttock wound with normal saline daily. Apply Thera honey and foam dressing. Will discuss with patient excisional versus non-excisional debridement Turn every 2 hours Offload pressure on heels with pillow Thank you for this consultation we will continue to follow with recommendations (2) Sacral decubitus ulcer Assessment & Plan: DAILY ESTIMATED NEEDS: Needs based on Wound/ 65kg 25-30 kcals/kg 5588-6327 total kcals 1.3-1.8 g protein/kg 85-117 g total protein 25-30 mL/kg 8249-0007 total fluid mLs NUTRITION DIAGNOSIS: Increased kcal/prot needs R/T wound healing as evidenced by pt admitted w/ stage 3 R ischium wound, s/p excisional debridement and small unstageable wound @ L buttock. CURRENT DIET:CCHO LOW, soft easy chew PO DIET RECOMMENDATIONS: CCHO MED/ texture as tolerated ADDITIONAL RECOMMENDATIONS: * Wound healing: add MVI w/ min 1 tab QD add Vit C 500mg QD add ZnSO4 220mg QD x 10 days Lopez 1pkt BID added to tray * A1C for eval of glycemic control * Consider accucheck + SSI: h/o DM * Snacks TID in b/w meals to prevent hypoglycemia * F/up CBC and BMP as able (last done on 04/16) Александр Garg Apr 19, 2019 17:39
--- NOTE | 2019-04-19 19:31 | NUR ---
HAND-OFF: Report given to Enoc ELIZABETH RN.
[2019-04-19] MEDS: Atorvastatin 20mg tab ORAL SCH (20:45)
--- NOTE | 2019-04-19 21:34 | NUR ---
NURSE NOTES: PATIENT IN BED, ALERT AND ORIENTED. NO COMPLAINTS OF PAIN AT THIS TIME. NO DISTRESS NOTED. BED IN LOWEST POSITION, CALL LIGHT WITHIN REACH, BED ALARM ON. PATIENT ABLE TO AMBULATE TO COMMODE. WILL CONTINUE TO MONITOR.
[2019-04-20] VITALS (8 sets, daily range): BP systolic 97–140; BP diastolic 46–96
--- NOTE | 2019-04-20 00:15 | Progress Note ---
DATE: 04/19/2019 CARDIOLOGY PROGRESS NOTE SUBJECTIVE: The patient continues to have wound care. Pain control is adequate. No shortness of breath. OBJECTIVE: VITAL SIGNS: T-max 99.1, blood pressure 114/62, heart rate 77, respiratory rate 16. LUNGS: Clear. CARDIAC: Regular. Normal S1, S2. ABDOMEN: Soft. EXTREMITIES: No edema. SKIN: Wound site has dressing in place. LABORATORY DATA: White count 5.6, hemoglobin 12.9. Sodium 139, potassium 4.1, bicarb 24, BUN 22, creatinine 1, magnesium 1.8. Albumin 3.3. IMPRESSION: 1. Resolved sepsis due to cellulitis and abscess. 2. Resolved hypovolemia and with early shock. 3. Hypertension, controlled. 4. Type 2 diabetes mellitus with blood glucose stable. PLAN: 1. Wound care. 2. Antimicrobials. 3. Maintain current cardiovascular regimen. 4. Discharge plan. Jovan Rose M.D. DR: JUDY JOB#: [id number] CC:
[2019-04-20] MEDS: Vancomycin 750mg/NS 275ml IVPB SCH ×4 (02:16→15:34)
[2019-04-20] MEDS: GlipiZIDE 5mg tab ORAL SCH ×2 (05:34→17:30)
--- NOTE | 2019-04-20 05:37 | NUR ---
NURSE NOTES: PATIENT KEPT GOING TO THE COM[facility] ALL THROUGHOUT THE NIGHT. GIVEN WATER REQUESTED. V/S STABLE, AFEBRILE.
[2019-04-20] MEDS: Milk of Magnesia 30ml Ud ORAL PRN (05:54)
--- NOTE | 2019-04-20 06:53 | NUR ---
HAND-OFF: Report given to CRISTIAN BAUTISTA RN.
--- NOTE | 2019-04-20 07:55 | General Progress Note ---
Assessment/Plan Problem List: (1) UTI (urinary tract infection) ICD Codes: N39.0 - Urinary tract infection, site not specified SNOMED: 28330479 Qualifiers: Qualified Codes: N39.0 - Urinary tract infection, site not specified (2) COPD (chronic obstructive pulmonary disease) ICD Codes: J44.9 - Chronic obstructive pulmonary disease, unspecified SNOMED: 88011358 Qualifiers: Qualified Codes: J44.9 - Chronic obstructive pulmonary disease, unspecified (3) Decubitus ulcer ICD Codes: L89.90 - Pressure ulcer of unspecified site, unspecified stage SNOMED: 676465660 Qualifiers: Qualified Codes: L89.210 - Pressure ulcer of right hip, unstageable (4) Sacral decubitus ulcer ICD Codes: L89.159 - Pressure ulcer of sacral region, unspecified stage SNOMED: 531610586 Status: stable, progressing Assessment/Plan: iv abx follow up cultures wound care pain rx ID eval appreciated dc planing to RUY when able to convert to oral abx Subjective ROS Limited/Unobtainable: No Constitutional: Reports: weakness HEENT: Reports: no symptoms Cardiovascular: Reports: no symptoms Respiratory: Reports: no symptoms Gastrointestinal/Abdominal: Reports: no symptoms Genitourinary: Reports: no symptoms Neurologic/Psychiatric: Reports: anxiety, pre-existing deficit Endocrine: Reports: no symptoms Hematologic/Lymphatic: Reports: no symptoms Allergies: Coded Allergies: No Known Allergies (Unverified , 04/14/19) All Systems: reviewed and negative except above Subjective no events. right buttocks pain. getting wound care. cultures noted. no fevers s/p I and D by surgery. has decreased pain ID appreciated. on iv abx Objective Last 24 Hour Vital Signs Date Time Temp Pulse Resp B/P (MAP) Pulse Ox O2 Delivery O2 Flow Rate FiO2 04/20/19 05:34 94 98/81 04/20/19 04:00 97.8 94 98/81 (87) 04/20/19 00:00 98.1 67 97/46 (63) 04/19/19 22:39 81 123/63 04/19/19 22:38 81 123/63 (83) 04/19/19 21:21 Room Air 04/19/19 20:41 96/65 04/19/19 20:40 97.8 78 19 96/65 (75) 94 04/19/19 17:21 78 110/76 04/19/19 16:00 98.3 78 19 110/76 (87) 100 04/19/19 14:00 73 111/57 04/19/19 12:00 98.2 73 18 111/57 (75) 97 04/19/19 09:00 Room Air 04/19/19 08:26 135/87 04/19/19 08:25 89 135/87 04/19/19 08:00 98.1 89 17 135/87 (103) 100 Intake and Output 04/19/19 04/20/19 18:59 06:59 Intake Total 830.000 ml 755.000 ml Balance 830.000 ml 755.000 ml Intake Oral 500 ml 480 ml IV Total 330.000 ml 275.000 ml # Voids 5 12 # Bowel Movements 1 Height (Feet): 5 Height (Inches): 5.00 Weight (Pounds): 138 Objective General Appearance: WD/WN, alert Neck: supple Cardiovascular: normal rate, regular rhythm Respiratory/Chest: chest wall non-tender, lungs clear Abdomen: normal bowel sounds, non tender, soft, no organomegaly Edema: no edema noted Arm (L), no edema noted Arm (R), no edema noted Leg (L), no edema noted Leg (R), no edema noted Pedal (L), no edema noted Pedal (R), no edema noted 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
[2019-04-20] MEDS: Zinc Sulfate 220mg cap ORAL SCH (09:16)
[2019-04-20] MEDS: Ascorbic Acid 500mg tab ORAL SCH (09:16)
[2019-04-20] MEDS: Losartan 25mg tab ORAL SCH ×2 (09:16→20:55)
[2019-04-20] MEDS: Sertraline 100mg tab ORAL SCH (09:16)
[2019-04-20] MEDS: cefTRIAXone 1gm/D5W 55ml IVPB SCH ×2 (09:16)
[2019-04-20] MEDS: Heparin 5000 units/ml inj SUBQ SCH ×2 (09:21→21:00)
--- NOTE | 2019-04-20 10:56 | Infectious Diseases Prog Note ---
Assessment/Plan Assessment/Plan antibiotics : vancomycin iv, ceftriaxone A 1. buttock MRSA abscess 2. citrobacter UTI s/p rx 3. diabetes mellitus 4. hypertension P 1. continue iv vancomycin 3 more days 2. d/c ceftriaxone 3. will follow up cultures Subjective Constitutional: Denies: fever, chills Respiratory: Denies: shortness of breath, dry cough Gastrointestinal/Abdominal: Denies: nausea, vomiting, diarrhea Musculoskeletal: Denies: pain Allergies: Coded Allergies: No Known Allergies (Unverified , 04/14/19) Objective Vital Signs Last 24 Hour Vital Signs Date Time Temp Pulse Resp B/P (MAP) Pulse Ox O2 Delivery O2 Flow Rate FiO2 04/20/19 09:17 60 136/78 04/20/19 09:16 136/78 04/20/19 09:00 Room Air 04/20/19 08:00 97.9 60 136/78 (97) 04/20/19 05:34 94 98/81 04/20/19 04:00 97.8 94 98/81 (87) 04/20/19 00:00 98.1 67 97/46 (63) 04/19/19 22:39 81 123/63 04/19/19 22:38 81 123/63 (83) 04/19/19 21:21 Room Air 04/19/19 20:41 96/65 04/19/19 20:40 97.8 78 19 96/65 (75) 94 04/19/19 17:21 78 110/76 04/19/19 16:00 98.3 78 19 110/76 (87) 100 04/19/19 14:00 73 111/57 04/19/19 12:00 98.2 73 18 111/57 (75) 97 Height (Feet): 5 Height (Inches): 5.00 Weight (Pounds): 138 Respiratory/Chest: lungs clear Cardiovascular: normal rate, regular rhythm, no gallop/murmur Abdomen: soft, non tender Extremities: no edema Current Medications Medications (Trade) Dose Ordered Sig/Katia Route PRN Reason Start Time Stop Time Status Last Admin Dose Admin Amlodipine Besylate (Norvasc) 5 mg BID ORAL 04/14/19 18:00 05/14/19 17:59 04/20/19 09:17 Ascorbic Acid (Vitamin C) 500 mg DAILY ORAL 04/19/19 09:00 05/19/19 08:59 04/20/19 09:16 Atorvastatin Calcium (Lipitor) 20 mg BEDTIME ORAL 04/14/19 21:00 05/14/19 20:59 04/19/19 20:45 Ceftriaxone Sodium 1 gm/ Dextrose 55 ml @ 110 mls/hr DAILY IVPB 04/16/19 14:00 04/23/19 13:59 04/20/19 09:16 Glipizide (Glucotrol) 5 mg BIAC ORAL 04/15/19 06:30 05/15/19 06:29 04/20/19 05:34 Heparin Sodium (Porcine) (Heparin 5000 units/ml) 5,000 units EVERY 12 HOURS SUBQ 04/14/19 21:00 05/14/19 20:59 04/20/19 09:21 Labetalol HCl (Normodyne) 100 mg Q8HR ORAL 04/15/19 22:00 05/15/19 21:59 04/19/19 22:39 Losartan Potassium (Cozaar) 25 mg EVERY 12 HOURS ORAL 04/15/19 21:00 05/15/19 20:59 04/20/19 09:16 Magnesium Hydroxide (Mom) 30 ml TIDPRN PRN ORAL Constipation 04/15/19 15:45 05/15/19 15:44 04/20/19 05:54 Morphine Sulfate (Morphine Sulfate) 1 mg Q4H PRN IVP Moderate Pain (Pain Scale 4-6) 04/14/19 18:45 04/21/19 18:44 04/15/19 14:53 Multivitamins (Multivitamins) 1 tab DAILY ORAL 04/19/19 09:00 05/19/19 08:59 04/20/19 09:16 Pantoprazole (Protonix) 40 mg DAILY ORAL 04/15/19 09:00 05/15/19 08:59 04/20/19 09:16 Risperidone (RisperDAL) 1 mg TWICE A DAY ORAL 04/14/19 18:00 05/14/19 17:59 04/20/19 09:16 Sertraline HCl (Zoloft) 100 mg DAILY ORAL 04/15/19 09:00 05/15/19 08:59 04/20/19 09:16 Vancomycin HCl (Vanco rx to dose) 1 ea DAILY PRN MISC Per rx protocol 04/14/19 18:00 05/14/19 17:59 Vancomycin HCl 750 mg/Sodium Chloride 275 ml @ 183.333 mls/hr Q12HR@0300,1500 IVPB 04/15/19 03:00 04/24/19 23:59 04/20/19 02:16 Zinc Sulfate (Zinc Sulfate) 220 mg DAILY ORAL 04/19/19 09:00 04/29/19 08:59 04/20/19 09:16 Bharat Gardiner MD Apr 20, 2019 10:56
--- NOTE | 2019-04-20 12:23 | NUR ---
CASE MANAGEMENT:REVIEW 04/20/19 SI:COPD. UTI. RT BUTTOCK ULCER & ABSCESS GROWING MRSA S/P EXCISIONAL DEBRIDEMENT 98.1 89 17 135/87 100% ON RA IS: IV VANCOMYCIN Q12 LABETALOL PO Q8HRS COZAAR PO Q12 HEPARIN SQ Q12 NORVASC PO BID : MED/SURG STATUS 4 EAST DCP: FROM [facility] B&C PLAN: WOUND CARE~ WASH W/NS DAILY..APPLY THERA HONEY AND FOAM DRESSING CONTINUE ROCEPHIN. CONTINUE IV VANCOMYCIN FOR 3 MORE DAYS F/U CULTURES PENDING
--- NOTE | 2019-04-20 16:00 | Surgery Progress Note ---
Surgery Progress Note Subjective Additional Comments no acute events exam stable comfortable appearing labs noted Objective Last 24 Hour Vital Signs Date Time Temp Pulse Resp B/P (MAP) Pulse Ox O2 Delivery O2 Flow Rate FiO2 04/20/19 14:51 68 140/96 04/20/19 12:00 98.5 68 16 140/96 (111) 98 04/20/19 09:17 60 136/78 04/20/19 09:16 136/78 04/20/19 09:00 Room Air 04/20/19 08:00 97.9 60 136/78 (97) 04/20/19 05:34 94 98/81 04/20/19 04:00 97.8 94 98/81 (87) 04/20/19 00:00 98.1 67 97/46 (63) 04/19/19 22:39 81 123/63 04/19/19 22:38 81 123/63 (83) 04/19/19 21:21 Room Air 04/19/19 20:41 96/65 04/19/19 20:40 97.8 78 19 96/65 (75) 94 04/19/19 17:21 78 110/76 04/19/19 16:00 98.3 78 19 110/76 (87) 100 I&O Intake and Output 04/19/19 04/20/19 19:00 07:00 Intake Total 830.000 ml 755.000 ml Balance 830.000 ml 755.000 ml Intake Oral 500 ml 480 ml IV Total 330.000 ml 275.000 ml # Voids 5 12 # Bowel Movements 1 Dressing: saturated Wound: clean Cardiovascular: RSR Respiratory: clear Abdomen: soft, non-tender, present bowel sounds, non-distended Extremities: no cyanosis, other Plan Problems: (1) Decubitus ulcer Assessment & Plan: 73-year-old female with a foul-smelling right buttock full- thickness stage 3 decubitus ulcer approximately 3 cm x 3 cm with 100% slough. Periwound intact. No purulent drainage. Also has a small unstageable 1 cm x 2 cm left buttock decubitus ulcer as well. Periwound intact. No fluctuance. Nontender on palpation. Patient unsure how long she has had it for. Pt presented on admission with full thickness pressure injury R ischium. Base of wound has 90% slough. Periwound indurated without erythema. Pt verbalized pain when perimeter of wound palpated. No odor or exudate noted.(L)3cm x (W) 2.5cm. Excisional debridement of wound done at bedside by .Pt tolerated procedure.Small amt sanguineous exudate noted.Gauze packing in place and covered with Optifoam drsg. Patient states that she is able to move and does walk to the bedside commode. I spoke to patient and explained her how important is that she keeps turning herself and offloading pressure on areas of wound and bony prominences. Patient expressed understanding and states she will do her best. Wash right buttock wound with normal saline daily. Apply Thera honey and foam dressing. Will discuss with patient excisional versus non-excisional debridement Turn every 2 hours Offload pressure on heels with pillow Thank you for this consultation we will continue to follow with recommendations (2) Sacral decubitus ulcer Assessment & Plan: DAILY ESTIMATED NEEDS: Needs based on Wound/ 65kg 25-30 kcals/kg 9359-0700 total kcals 1.3-1.8 g protein/kg 85-117 g total protein 25-30 mL/kg 1620-4558 total fluid mLs NUTRITION DIAGNOSIS: Increased kcal/prot needs R/T wound healing as evidenced by pt admitted w/ stage 3 R ischium wound, s/p excisional debridement and small unstageable wound @ L buttock. CURRENT DIET:CCHO LOW, soft easy chew PO DIET RECOMMENDATIONS: CCHO MED/ texture as tolerated ADDITIONAL RECOMMENDATIONS: * Wound healing: add MVI w/ min 1 tab QD add Vit C 500mg QD add ZnSO4 220mg QD x 10 days Lopez 1pkt BID added to tray * A1C for eval of glycemic control * Consider accucheck + SSI: h/o DM * Snacks TID in b/w meals to prevent hypoglycemia * F/up CBC and BMP as able (last done on 04/16) Александр Garg Apr 20, 2019 16:00
--- NOTE | 2019-04-20 16:13 | NUR ---
NURSE NOTES: PT HAD TAKEN OFF RIGHT BUTTOCK DRESSING WHEN USING BEDSIDE COMMODE. RN EDUCATED PT ON KEEPING DRESSING DRY AND CLEAN. PT REFUSED DRESSING CHANGE.
--- NOTE | 2019-04-20 19:30 | NUR ---
NURSE NOTES: Received report from Momo Fofana RN and rounds made with outgoing nurse. Received pt sitting up in bed, AOX3, denies any pain, no distress noted. Pt refused to turn to assess right buttock dressing. IV right forearm patent and intact. Bed in lowest position and locked, side rails up x 2, call light within reach. Will continue to moniotr.
--- NOTE | 2019-04-20 19:44 | NUR ---
HAND-OFF: Report given to Elliot KIRK RN.
[2019-04-20] MEDS: Atorvastatin 20mg tab ORAL SCH (20:55)
[2019-04-21] VITALS: BP 104/44
--- NOTE | 2019-04-21 00:16 | NUR ---
HAND-OFF: Report given to MARIE Lira. Pt in stable condition.
--- NOTE | 2019-04-21 02:00 | Progress Note ---
DATE: 04/20/2019 CARDIOLOGY PROGRESS NOTE OBJECTIVE: VITAL SIGNS: Blood pressure stable at low baseline range 98/81. Heart rate 67 to 94. Afebrile. LUNGS: Diminished breath sounds. HEART: Regular rhythm and rate. Normal S1, S2. ABDOMEN: Soft. EXTREMITIES: No edema. IMPRESSION: 1. Right buttocks wound and abscess with cellulitis. 2. Ischemic heart disease. 3. Stable angina. 4. COPD. 5. Urinary tract infection. 6. Recovering sepsis. PLAN: 1. Antimicrobials. 2. Wound care. 3. Titration of antianginal and antihypertensive regimen. 4. Glucose titration. 5. DVT prophylaxis. 6. Maintain adequate hydration. 7. Fluid challenge for symptomatic hypotension. Jovan Rose M.D. DR: MIKAEL JOB#: [id number] CC:
[2019-04-21 04:00] VITALS: BP 115/50
--- NOTE | 2019-04-21 04:00 | NUR ---
NURSE NOTES: WOUND CARE RIGHT BUTTOCK, TOLERATED WELL.
[2019-04-21] MEDS: Vancomycin 750mg/NS 275ml IVPB SCH ×4 (04:25→15:59)
[2019-04-21] MEDS: GlipiZIDE 5mg tab ORAL SCH ×2 (05:47→15:59)
--- NOTE | 2019-04-21 06:14 | NUR ---
NURSE NOTES: RESTED WELL, NO SIGNIFICANT CHANGE OF CONDITION NOTED THROUGHOUT THE NIGHT. SAFETY MAINTAINED. NAD.
--- NOTE | 2019-04-21 07:10 | NUR ---
NURSE NOTES: Received patient in bed awake, alert and verbally responsive. No SOB of cardiac distress. IV line intact, no s/s of infiltration. Wound dressing intact. Head of bed kept elevated. Bed kept in lowest position and locked. Call light kept within reach. Will continue plan of care.
[2019-04-21 08:00] VITALS: BP 128/74
[2019-04-21] MEDS: Losartan 25mg tab ORAL SCH ×2 (09:41→20:38)
[2019-04-21] MEDS: Sertraline 100mg tab ORAL SCH (09:42)
[2019-04-21] MEDS: Ascorbic Acid 500mg tab ORAL SCH (09:43)
[2019-04-21] MEDS: Zinc Sulfate 220mg cap ORAL SCH (09:43)
[2019-04-21] MEDS: Heparin 5000 units/ml inj SUBQ SCH ×2 (09:47→20:42)
--- NOTE | 2019-04-21 10:54 | General Progress Note ---
Assessment/Plan Problem List: (1) UTI (urinary tract infection) ICD Codes: N39.0 - Urinary tract infection, site not specified SNOMED: [id number] Qualifiers: Qualified Codes: N39.0 - Urinary tract infection, site not specified (2) COPD (chronic obstructive pulmonary disease) ICD Codes: J44.9 - Chronic obstructive pulmonary disease, unspecified SNOMED: 65571674 Qualifiers: Qualified Codes: J44.9 - Chronic obstructive pulmonary disease, unspecified (3) Decubitus ulcer ICD Codes: L89.90 - Pressure ulcer of unspecified site, unspecified stage SNOMED: 160205885 Qualifiers: Qualified Codes: L89.210 - Pressure ulcer of right hip, unstageable (4) Sacral decubitus ulcer ICD Codes: L89.159 - Pressure ulcer of sacral region, unspecified stage SNOMED: 849857446 Status: stable, progressing Assessment/Plan: iv abx follow up cultures wound care pain rx ID eval appreciated dc planing to RUY when able to convert to oral abx Subjective Allergies: Coded Allergies: No Known Allergies (Unverified , 04/14/19) Subjective no events. right buttocks pain. getting wound care. cultures noted. no fevers s/p I and D by surgery. has decreased pain ID appreciated. on iv abx. 3 more days iv vanco needed Objective Last 24 Hour Vital Signs Date Time Temp Pulse Resp B/P (MAP) Pulse Ox O2 Delivery O2 Flow Rate FiO2 04/21/19 09:43 85 128/74 04/21/19 09:41 128/74 04/21/19 08:00 97.7 85 19 128/74 (92) 100 04/21/19 05:40 68 101/53 04/21/19 04:00 98.0 70 20 115/50 (71) 96 04/21/19 00:00 97.9 70 18 104/44 (64) 99 04/20/19 21:01 67 102/56 04/20/19 21:00 Room Air 04/20/19 20:55 102/56 04/20/19 20:00 98.2 67 18 102/56 (71) 94 04/20/19 17:30 71 115/67 04/20/19 16:00 98.2 71 16 115/67 (83) 99 04/20/19 14:51 68 140/96 04/20/19 12:00 98.5 68 16 140/96 (111) 98 Intake and Output 04/20/19 04/21/19 18:59 06:59 Intake Total 930.000 ml 303.333 ml Output Total 400 ml Balance 930.000 ml -96.667 ml Intake Oral 600 ml 120 ml IV Total 330.000 ml 183.333 ml Output Urine Total 400 ml # Voids 2 # Bowel Movements 2 Height (Feet): 5 Height (Inches): 5.00 Weight (Pounds): 138 Objective General Appearance: WD/WN, alert Neck: supple Cardiovascular: normal rate, regular rhythm Respiratory/Chest: chest wall non-tender, lungs clear Abdomen: normal bowel sounds, non tender, soft, no organomegaly Edema: no edema noted Arm (L), no edema noted Arm (R), no edema noted Leg (L), no edema noted Leg (R), no edema noted Pedal (L), no edema noted Pedal (R), no edema noted Generalized Neurologic: rn women services II-XII grossly normal, no motor/sensory deficits, oriented x 3 , responsive Trevor Talley MD Apr 21, 2019 10:54
--- NOTE | 2019-04-21 11:49 | NUR ---
PT Note PT ignacio completed, tx initiated. Patient is able to ambulate with a FWW but c/o dizziness during gait training. Patient can benefit from PT services to increase her muscle strength and balance to improve her safety in mobility and gait. Addendum: 04/21/19 at 1150 by REESE ALEJANDRE PT Amended: Links added.
[2019-04-21 12:00] VITALS: BP 130/64
--- NOTE | 2019-04-21 12:38 | Surgery Progress Note ---
Surgery Progress Note Subjective Symptoms: improved, tolerating diet, voiding well, passing flatus Objective Last 24 Hour Vital Signs Date Time Temp Pulse Resp B/P (MAP) Pulse Ox O2 Delivery O2 Flow Rate FiO2 04/21/19 12:00 97.9 63 18 130/64 (86) 100 04/21/19 09:43 85 128/74 04/21/19 09:41 128/74 04/21/19 08:00 97.7 85 19 128/74 (92) 100 04/21/19 05:40 68 101/53 04/21/19 04:00 98.0 70 20 115/50 (71) 96 04/21/19 00:00 97.9 70 18 104/44 (64) 99 04/20/19 21:01 67 102/56 04/20/19 21:00 Room Air 04/20/19 20:55 102/56 04/20/19 20:00 98.2 67 18 102/56 (71) 94 04/20/19 17:30 71 115/67 04/20/19 16:00 98.2 71 16 115/67 (83) 99 04/20/19 14:51 68 140/96 I&O Intake and Output 04/20/19 04/21/19 18:59 06:59 Intake Total 930.000 ml 303.333 ml Output Total 400 ml Balance 930.000 ml -96.667 ml Intake Oral 600 ml 120 ml IV Total 330.000 ml 183.333 ml Output Urine Total 400 ml # Voids 2 # Bowel Movements 2 Dressing: saturated Wound: clean Cardiovascular: RSR Respiratory: clear Abdomen: soft, flat, non-tender, present bowel sounds Extremities: no edema, no tenderness, no cyanosis Plan Problems: (1) Decubitus ulcer Assessment & Plan: 73-year-old female with a foul-smelling right buttock full- thickness stage 3 decubitus ulcer approximately 3 cm x 3 cm with 100% slough. Periwound intact. No purulent drainage. Also has a small unstageable 1 cm x 2 cm left buttock decubitus ulcer as well. Periwound intact. No fluctuance. Nontender on palpation. Patient unsure how long she has had it for. Pt presented on admission with full thickness pressure injury R ischium. Base of wound has 90% slough. Periwound indurated without erythema. Pt verbalized pain when perimeter of wound palpated. No odor or exudate noted.(L)3cm x (W) 2.5cm. Excisional debridement of wound done at bedside by .Pt tolerated procedure.Small amt sanguineous exudate noted.Gauze packing in place and covered with Optifoam drsg. Patient states that she is able to move and does walk to the bedside commode. I spoke to patient and explained her how important is that she keeps turning herself and offloading pressure on areas of wound and bony prominences. Patient expressed understanding and states she will do her best. Wash right buttock wound with normal saline daily. Apply Thera honey and foam dressing. Will discuss with patient excisional versus non-excisional debridement Turn every 2 hours Offload pressure on heels with pillow Thank you for this consultation we will continue to follow with recommendations (2) Sacral decubitus ulcer Assessment & Plan: DAILY ESTIMATED NEEDS: Needs based on Wound/ 65kg 25-30 kcals/kg 5048-0701 total kcals 1.3-1.8 g protein/kg 85-117 g total protein 25-30 mL/kg 6582-6299 total fluid mLs NUTRITION DIAGNOSIS: Increased kcal/prot needs R/T wound healing as evidenced by pt admitted w/ stage 3 R ischium wound, s/p excisional debridement and small unstageable wound @ L buttock. CURRENT DIET:CCHO LOW, soft easy chew PO DIET RECOMMENDATIONS: CCHO MED/ texture as tolerated ADDITIONAL RECOMMENDATIONS: * Wound healing: add MVI w/ min 1 tab QD add Vit C 500mg QD add ZnSO4 220mg QD x 10 days Lopez 1pkt BID added to tray * A1C for eval of glycemic control * Consider accucheck + SSI: h/o DM * Snacks TID in b/w meals to prevent hypoglycemia * F/up CBC and BMP as able (last done on 04/16) Александр Garg Apr 21, 2019 12:38
--- NOTE | 2019-04-21 14:25 | Infectious Diseases Prog Note ---
Assessment/Plan Assessment/Plan A: 1. 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 Citrobacter urinary tract infection. 3. Diabetes. 4. Hypertension. P: 1. Continue IV vancomycin X 2 days. 2. Wound care Subjective ROS Limited/Unobtainable: No Constitutional: Reports: no symptoms Respiratory: Reports: no symptoms Cardiovascular: Reports: no symptoms Gastrointestinal/Abdominal: Reports: no symptoms Genitourinary: Reports: no symptoms Musculoskeletal: Reports: pain, other - buttock Allergies: Coded Allergies: No Known Allergies (Unverified , 04/14/19) Objective Vital Signs Last 24 Hour Vital Signs Date Time Temp Pulse Resp B/P (MAP) Pulse Ox O2 Delivery O2 Flow Rate FiO2 04/21/19 12:00 97.9 63 18 130/64 (86) 100 04/21/19 09:43 85 128/74 04/21/19 09:41 128/74 04/21/19 08:00 97.7 85 19 128/74 (92) 100 04/21/19 05:40 68 101/53 04/21/19 04:00 98.0 70 20 115/50 (71) 96 04/21/19 00:00 97.9 70 18 104/44 (64) 99 04/20/19 21:01 67 102/56 04/20/19 21:00 Room Air 04/20/19 20:55 102/56 04/20/19 20:00 98.2 67 18 102/56 (71) 94 04/20/19 17:30 71 115/67 04/20/19 16:00 98.2 71 16 115/67 (83) 99 04/20/19 14:51 68 140/96 Height (Feet): 5 Height (Inches): 5.00 Weight (Pounds): 138 General Appearance: no acute distress HEENT: mucous membranes moist Respiratory/Chest: lungs clear Cardiovascular: normal rate Abdomen: soft, non tender Skin: ulcers Neurologic/Psychiatric: alert, responsive Current Medications Medications (Trade) Dose Ordered Sig/Katia Route PRN Reason Start Time Stop Time Status Last Admin Dose Admin Amlodipine Besylate (Norvasc) 5 mg BID ORAL 04/14/19 18:00 05/14/19 17:59 04/21/19 09:43 Ascorbic Acid (Vitamin C) 500 mg DAILY ORAL 04/19/19 09:00 05/19/19 08:59 04/21/19 09:43 Atorvastatin Calcium (Lipitor) 20 mg BEDTIME ORAL 04/14/19 21:00 05/14/19 20:59 04/19/19 20:45 Glipizide (Glucotrol) 5 mg BIAC ORAL 04/15/19 06:30 05/15/19 06:29 04/21/19 05:47 Heparin Sodium (Porcine) (Heparin 5000 units/ml) 5,000 units EVERY 12 HOURS SUBQ 04/14/19 21:00 05/14/19 20:59 04/21/19 09:47 Labetalol HCl (Normodyne) 100 mg Q8HR ORAL 04/15/19 22:00 05/15/19 21:59 04/21/19 05:40 Losartan Potassium (Cozaar) 25 mg EVERY 12 HOURS ORAL 04/15/19 21:00 05/15/19 20:59 04/21/19 09:41 Magnesium Hydroxide (Mom) 30 ml TIDPRN PRN ORAL Constipation 04/15/19 15:45 05/15/19 15:44 04/20/19 05:54 Morphine Sulfate (Morphine Sulfate) 1 mg Q4H PRN IVP Moderate Pain (Pain Scale 4-6) 04/14/19 18:45 04/21/19 18:44 04/15/19 14:53 Multivitamins (Multivitamins) 1 tab DAILY ORAL 04/19/19 09:00 05/19/19 08:59 04/21/19 09:40 Pantoprazole (Protonix) 40 mg DAILY ORAL 04/15/19 09:00 05/15/19 08:59 04/21/19 09:40 Risperidone (RisperDAL) 1 mg TWICE A DAY ORAL 04/14/19 18:00 05/14/19 17:59 04/21/19 09:41 Sertraline HCl (Zoloft) 100 mg DAILY ORAL 04/15/19 09:00 05/15/19 08:59 04/21/19 09:42 Vancomycin HCl (Vanco rx to dose) 1 ea DAILY PRN MISC Per rx protocol 04/14/19 18:00 05/14/19 17:59 Vancomycin HCl 750 mg/Sodium Chloride 275 ml @ 183.333 mls/hr Q12HR@0300,1500 IVPB 04/15/19 03:00 04/24/19 23:59 04/21/19 04:25 Zinc Sulfate (Zinc Sulfate) 220 mg DAILY ORAL 04/19/19 09:00 04/29/19 08:59 04/21/19 09:43 Alfredo Rubio MD Apr 21, 2019 14:25
[2019-04-21 16:00] VITALS: BP 125/70
--- NOTE | 2019-04-21 19:45 | NUR ---
HAND-OFF: Report given to Maxine.
[2019-04-21 20:00] VITALS: BP 123/69
--- NOTE | 2019-04-21 20:05 | NUR ---
NURSE NOTES: Pt received in bed no c/o pain, informing that she doesn't want to keep her dressing on her buttocks because she pees, I explained that reasoning for the dressing, will continue to monitor.
[2019-04-21] MEDS: Atorvastatin 20mg tab ORAL SCH (20:38)
[2019-04-22] VITALS: BP 130/64
--- NOTE | 2019-04-22 00:30 | Progress Note ---
DATE: 04/21/2019 CARDIOLOGY PROGRESS NOTE SUBJECTIVE: The patient is on multiple antimicrobials, still on wound care. No shortness of breath or chest pain. OBJECTIVE: VITAL SIGNS: Blood pressure 128/74, pulse 85, respiratory rate 19. LUNGS: Bilateral breath sounds. CARDIAC: Regular rhythm and rate. Normal S1, S2. ABDOMEN: Soft. EXTREMITIES: No edema. IMPRESSION: 1. Cellulitis and abscess of the buttock. 2. Hypertensive heart disease. 3. Metabolic encephalopathy, resolved. 4. Hypovolemia and dehydration, corrected. 5. Type 2 diabetes mellitus with improved glucose control. PLAN: 1. Maintain current cardiovascular regimen. 2. Complete antimicrobials. 3. Continue wound care. 4. DVT prophylaxis. Jovan Rose M.D. DR: JUDY JOB#: [id number] CC:
[2019-04-22] MEDS: Vancomycin 750mg/NS 275ml IVPB SCH ×4 (03:16→15:34)
[2019-04-22 04:00] VITALS: BP 119/73
[2019-04-22] MEDS: GlipiZIDE 5mg tab ORAL SCH ×2 (06:29→15:54)
--- NOTE | 2019-04-22 07:45 | NUR ---
HAND-OFF: Report given to Suellen Hammond RN and LUBNA Philippe.
--- NOTE | 2019-04-22 07:45 | NUR ---
NURSE NOTES: Patient received asleep on bed. No SOB or cardiac distress. Head of bed elevated. Bed kept on lowest position and locked. Call light within reach. Will continue plan of care.
[2019-04-22 08:00] VITALS: BP 125/70
[2019-04-22] MEDS: Ascorbic Acid 500mg tab ORAL SCH (08:54)
[2019-04-22] MEDS: Zinc Sulfate 220mg cap ORAL SCH (08:54)
[2019-04-22] MEDS: Sertraline 100mg tab ORAL SCH (08:54)
[2019-04-22] MEDS: Heparin 5000 units/ml inj SUBQ SCH ×2 (08:55→20:23)
[2019-04-22] MEDS: Losartan 25mg tab ORAL SCH ×2 (09:00→20:20)
--- NOTE | 2019-04-22 09:00 | NUR ---
NURSE NOTES: Patient refused dressing for wound. RN explained risks and benefits. Patient verbalized understanding.
--- NOTE | 2019-04-22 09:08 | General Progress Note ---
Assessment/Plan Problem List: (1) UTI (urinary tract infection) ICD Codes: N39.0 - Urinary tract infection, site not specified SNOMED: 91513640 Qualifiers: Qualified Codes: N39.0 - Urinary tract infection, site not specified (2) COPD (chronic obstructive pulmonary disease) ICD Codes: J44.9 - Chronic obstructive pulmonary disease, unspecified SNOMED: 33659445 Qualifiers: Qualified Codes: J44.9 - Chronic obstructive pulmonary disease, unspecified (3) Decubitus ulcer ICD Codes: L89.90 - Pressure ulcer of unspecified site, unspecified stage SNOMED: 937105158 Qualifiers: Qualified Codes: L89.210 - Pressure ulcer of right hip, unstageable (4) Sacral decubitus ulcer ICD Codes: L89.159 - Pressure ulcer of sacral region, unspecified stage SNOMED: 239912186 Status: stable, progressing Assessment/Plan: iv abx follow up cultures wound care pain rx ID eval appreciated dc planing to RUY when able to convert to oral abx Subjective ROS Limited/Unobtainable: No Constitutional: Reports: malaise, weakness HEENT: Reports: no symptoms Cardiovascular: Reports: no symptoms Respiratory: Reports: no symptoms Gastrointestinal/Abdominal: Reports: no symptoms Genitourinary: Reports: no symptoms Neurologic/Psychiatric: Reports: no symptoms Endocrine: Reports: no symptoms Hematologic/Lymphatic: Reports: no symptoms Allergies: Coded Allergies: No Known Allergies (Unverified , 04/14/19) All Systems: reviewed and negative except above Subjective no events. right buttocks pain. getting wound care. cultures noted. no fevers s/p I and D by surgery. has decreased pain ID appreciated. on iv abx. 2 more days iv vanco needed Objective Last 24 Hour Vital Signs Date Time Temp Pulse Resp B/P (MAP) Pulse Ox O2 Delivery O2 Flow Rate FiO2 04/22/19 08:00 97.2 92 18 125/70 (88) 96 04/22/19 05:45 64 108/60 04/22/19 04:00 98.0 65 16 119/73 (88) 95 04/22/19 00:00 97.5 71 18 130/64 (86) 96 04/21/19 22:00 78 105/46 04/21/19 21:00 Room Air 04/21/19 20:38 123/69 04/21/19 20:00 98.2 71 18 123/69 (87) 95 04/21/19 18:00 69 125/70 04/21/19 16:00 98.2 69 19 125/70 (88) 100 04/21/19 14:00 105/55 04/21/19 12:00 97.9 63 18 130/64 (86) 100 04/21/19 09:43 85 128/74 04/21/19 09:41 128/74 Intake and Output 04/21/19 04/22/19 19:00 07:00 Intake Total 1475 ml 183.333 ml Balance 1475 ml 183.333 ml Intake Oral 1200 ml IV Total 275 ml 183.333 ml # Voids 4 5 # Bowel Movements 4 Height (Feet): 5 Height (Inches): 5.00 Weight (Pounds): 138 Objective General Appearance: WD/WN, alert Neck: supple Cardiovascular: normal rate, regular rhythm Respiratory/Chest: chest wall non-tender, lungs clear Abdomen: normal bowel sounds, non tender, soft, no organomegaly Edema: no edema noted Arm (L), no edema noted Arm (R), no edema noted Leg (L), no edema noted Leg (R), no edema noted Pedal (L), no edema noted Pedal (R), no edema noted Generalized Neurologic: access director II-XII grossly normal, no motor/sensory deficits, oriented x 3 , responsive Trevor Talley MD Apr 22, 2019 09:08
--- NOTE | 2019-04-22 10:41 | Infectious Diseases Prog Note ---
Assessment/Plan Assessment/Plan A: 1. 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 Citrobacter urinary tract infection. 3. Diabetes. 4. Hypertension. P: 1. Continue IV vancomycin X 1 day 2. Wound care Subjective ROS Limited/Unobtainable: Yes Constitutional: Denies: fever Allergies: Coded Allergies: No Known Allergies (Unverified , 04/14/19) Objective Vital Signs Last 24 Hour Vital Signs Date Time Temp Pulse Resp B/P (MAP) Pulse Ox O2 Delivery O2 Flow Rate FiO2 04/22/19 08:00 97.2 92 18 125/70 (88) 96 04/22/19 05:45 64 108/60 04/22/19 04:00 98.0 65 16 119/73 (88) 95 04/22/19 00:00 97.5 71 18 130/64 (86) 96 04/21/19 22:00 78 105/46 04/21/19 21:00 Room Air 04/21/19 20:38 123/69 04/21/19 20:00 98.2 71 18 123/69 (87) 95 04/21/19 18:00 69 125/70 04/21/19 16:00 98.2 69 19 125/70 (88) 100 04/21/19 14:00 105/55 04/21/19 12:00 97.9 63 18 130/64 (86) 100 Height (Feet): 5 Height (Inches): 5.00 Weight (Pounds): 138 General Appearance: no acute distress HEENT: mucous membranes moist Respiratory/Chest: lungs clear Cardiovascular: normal rate Abdomen: soft, non tender Extremities: no edema Skin: other - right hip wound Neurologic/Psychiatric: other - sleeping Current Medications Medications (Trade) Dose Ordered Sig/Katia Route PRN Reason Start Time Stop Time Status Last Admin Dose Admin Amlodipine Besylate (Norvasc) 5 mg BID ORAL 04/14/19 18:00 05/14/19 17:59 04/21/19 09:43 Ascorbic Acid (Vitamin C) 500 mg DAILY ORAL 04/19/19 09:00 05/19/19 08:59 04/22/19 08:54 Atorvastatin Calcium (Lipitor) 20 mg BEDTIME ORAL 04/14/19 21:00 05/14/19 20:59 04/21/19 20:38 Glipizide (Glucotrol) 5 mg BIAC ORAL 04/15/19 06:30 05/15/19 06:29 04/22/19 06:29 Heparin Sodium (Porcine) (Heparin 5000 units/ml) 5,000 units EVERY 12 HOURS SUBQ 04/14/19 21:00 05/14/19 20:59 04/22/19 08:55 Labetalol HCl (Normodyne) 100 mg Q8HR ORAL 04/15/19 22:00 05/15/19 21:59 04/21/19 05:40 Losartan Potassium (Cozaar) 25 mg EVERY 12 HOURS ORAL 04/15/19 21:00 05/15/19 20:59 04/21/19 20:38 Magnesium Hydroxide (Mom) 30 ml TIDPRN PRN ORAL Constipation 04/15/19 15:45 05/15/19 15:44 04/20/19 05:54 Multivitamins (Multivitamins) 1 tab DAILY ORAL 04/19/19 09:00 05/19/19 08:59 04/22/19 08:54 Pantoprazole (Protonix) 40 mg DAILY ORAL 04/15/19 09:00 05/15/19 08:59 04/22/19 08:53 Risperidone (RisperDAL) 1 mg TWICE A DAY ORAL 04/14/19 18:00 05/14/19 17:59 04/22/19 08:54 Sertraline HCl (Zoloft) 100 mg DAILY ORAL 04/15/19 09:00 05/15/19 08:59 04/22/19 08:54 Vancomycin HCl (Vanco rx to dose) 1 ea DAILY PRN MISC Per rx protocol 04/14/19 18:00 05/14/19 17:59 Vancomycin HCl 750 mg/Sodium Chloride 275 ml @ 183.333 mls/hr Q12HR@0300,1500 IVPB 04/15/19 03:00 04/24/19 23:59 04/22/19 03:16 Zinc Sulfate (Zinc Sulfate) 220 mg DAILY ORAL 04/19/19 09:00 04/29/19 08:59 04/22/19 08:54 Alfredo Rubio MD Apr 22, 2019 10:41
[2019-04-22 12:00] VITALS: BP 116/61
--- NOTE | 2019-04-22 15:52 | Surgery Progress Note ---
Surgery Progress Note Subjective Additional Comments Patient seen and examined bedside. No acute events. Stating she is comfortable. Objective Last 24 Hour Vital Signs Date Time Temp Pulse Resp B/P (MAP) Pulse Ox O2 Delivery O2 Flow Rate FiO2 04/22/19 15:48 94 147/87 04/22/19 12:00 98.2 72 18 116/61 (79) 97 04/22/19 09:00 96/59 04/22/19 09:00 72 96/59 04/22/19 09:00 Room Air 04/22/19 08:00 97.2 92 18 125/70 (88) 96 04/22/19 05:45 64 108/60 04/22/19 04:00 98.0 65 16 119/73 (88) 95 04/22/19 00:00 97.5 71 18 130/64 (86) 96 04/21/19 22:00 78 105/46 04/21/19 21:00 Room Air 04/21/19 20:38 123/69 04/21/19 20:00 98.2 71 18 123/69 (87) 95 04/21/19 18:00 69 125/70 04/21/19 16:00 98.2 69 19 125/70 (88) 100 I&O Intake and Output 04/21/19 04/22/19 19:00 07:00 Intake Total 1475 ml 183.333 ml Balance 1475 ml 183.333 ml Intake Oral 1200 ml IV Total 275 ml 183.333 ml # Voids 4 5 # Bowel Movements 4 Dressing: saturated Wound: clean Cardiovascular: RSR Respiratory: clear Abdomen: soft, flat, non-tender, present bowel sounds Extremities: no tenderness, no cyanosis Plan Problems: (1) Decubitus ulcer Assessment & Plan: 73-year-old female with a foul-smelling right buttock full- thickness stage 3 decubitus ulcer approximately 3 cm x 3 cm with 100% slough. Periwound intact. No purulent drainage. Also has a small unstageable 1 cm x 2 cm left buttock decubitus ulcer as well. Periwound intact. No fluctuance. Nontender on palpation. Patient unsure how long she has had it for. Pt presented on admission with full thickness pressure injury R ischium. Base of wound has 90% slough. Periwound indurated without erythema. Pt verbalized pain when perimeter of wound palpated. No odor or exudate noted.(L)3cm x (W) 2.5cm. Excisional debridement of wound done at bedside by .Pt tolerated procedure.Small amt sanguineous exudate noted.Gauze packing in place and covered with Optifoam drsg. Patient states that she is able to move and does walk to the bedside commode. I spoke to patient and explained her how important is that she keeps turning herself and offloading pressure on areas of wound and bony prominences. Patient expressed understanding and states she will do her best. Wash right buttock wound with normal saline daily. Apply Thera honey and foam dressing. Will discuss with patient excisional versus non-excisional debridement Turn every 2 hours Offload pressure on heels with pillow Thank you for this consultation we will continue to follow with recommendations (2) Sacral decubitus ulcer Assessment & Plan: DAILY ESTIMATED NEEDS: Needs based on Wound/ 65kg 25-30 kcals/kg 3088-3172 total kcals 1.3-1.8 g protein/kg 85-117 g total protein 25-30 mL/kg 7927-5665 total fluid mLs NUTRITION DIAGNOSIS: Increased kcal/prot needs R/T wound healing as evidenced by pt admitted w/ stage 3 R ischium wound, s/p excisional debridement and small unstageable wound @ L buttock. CURRENT DIET:CCHO LOW, soft easy chew PO DIET RECOMMENDATIONS: CCHO MED/ texture as tolerated ADDITIONAL RECOMMENDATIONS: * Wound healing: add MVI w/ min 1 tab QD add Vit C 500mg QD add ZnSO4 220mg QD x 10 days Lopez 1pkt BID added to tray * A1C for eval of glycemic control * Consider accucheck + SSI: h/o DM * Snacks TID in b/w meals to prevent hypoglycemia * F/up CBC and BMP as able (last done on 04/16) Александр Garg Apr 22, 2019 15:52
[2019-04-22 16:00] VITALS: BP 121/65
--- NOTE | 2019-04-22 19:20 | NUR ---
HAND-OFF: Report given to Maxine.
--- NOTE | 2019-04-22 19:32 | NUR ---
NURSE NOTES: Pt received in bed, alert, IV intact TKO, no c/o pain or signs of distress, able to make needs known, call light within reach, pt still doesn't want to have a dressing placed on buttocks, will continue to monitor.
[2019-04-22 20:00] VITALS: BP 130/75
[2019-04-22] MEDS: Atorvastatin 20mg tab ORAL SCH (20:21)
[2019-04-23] VITALS: BP 148/82
--- NOTE | 2019-04-23 01:45 | Progress Note ---
DATE: 04/22/2019 CARDIOLOGY PROGRESS NOTE SUBJECTIVE: The patient remains on antimicrobials. Pain in her right buttock is better. She continues on wound care. OBJECTIVE: VITAL SIGNS: Blood pressure 125/70, pulse 92, respirations 18, and afebrile. LUNGS: Diminished breath sounds. No wheezing. HEART: Regular rhythm. Normal S1, S2. There is a fourth heart sound. ABDOMEN: Soft and nontender. EXTREMITIES: No edema. IMPRESSION AND PLAN: 1. Stable cardiovascular parameters. 2. Maintain current cardiovascular regimen. 3. Recheck laboratory studies. 4. Continue current therapy otherwise without change. Jovan Rose M.D. DR: MIKAEL JOB#: [id number] CC:
[2019-04-23] MEDS: Vancomycin 750mg/NS 275ml IVPB SCH ×2 (03:59)
[2019-04-23 04:00] VITALS: BP 99/45
[2019-04-23] MEDS: GlipiZIDE 5mg tab ORAL SCH (06:02)
[2019-04-23 06:38] LABS: BASOPHILS % (AUTO) 3.3 % (0.0-2.0); EOSINOPHILS % (AUTO) 11.6 % (0.0-3.0); HEMATOCRIT 36.1 % (37.0-47.0); HEMOGLOBIN 11.9 G/DL (12.0-16.0); LYMPHOCYTES % (AUTO) 37.6 % (20.0-45.0); MEAN CORPUSCULAR VOLUME 93 FL (80-99); MONOCYTES % (AUTO) 9.8 % (1.0-10.0); NEUTROPHILS % (AUTO) 37.7 % (45.0-75.0); PLATELET COUNT 227 K/UL (150-450); RED BLOOD COUNT 3.89 M/UL (4.20-5.40); RED CELL DISTRIBUTION WIDTH 13.1 % (11.6-14.8); WHITE BLOOD COUNT 5.2 K/UL (4.8-10.8)
--- NOTE | 2019-04-23 06:45 | Discharge Summary ---
DATE OF ADMISSION: 04/14/2019 DATE OF DISCHARGE: 04/23/2019 ADMISSION DIAGNOSES: Right buttocks abscess and cellulitis, hypertensive heart disease, and diabetes. DISCHARGE DIAGNOSES: Right buttocks abscess and cellulitis, hypertensive heart disease, and diabetes. HOSPITAL COURSE: The patient is a 73-year-old female with a history of hypertensive heart disease and diabetes. She presented with an abscess on the right buttocks. She underwent a bedside I and D. She received IV antibiotic therapy. Cultures were followed up. Antibiotics were adjusted by the ID engineering consultant. She was positive for UTI as well as for MRSA. She received intravenous antibiotics for approximately a week. On discharge, she was improving. She will be discharged home with oral antibiotic therapy for an additional week. Home health will be arranged for wound care. DISCHARGE MEDICATIONS: Please see discharge medication list for discharge medications. DIET: Cardiac diabetic diet. ACTIVITIES: Ad henri. FOLLOWUP: The patient will be followed up by her PMD at her assisted living in 1 to 2 weeks. Trevor Talley M.D. DR: SKYLAR JOB#: [id number] CC:
[2019-04-23 06:47] VITALS: BP 110/60
[2019-04-23 06:56] LABS: ALANINE AMINOTRANSFERASE 18 U/L (12-78); ALBUMIN 3.1 G/DL (3.4-5.0); ALBUMIN/GLOBULIN RATIO 0.9 (1.0-2.7); ALKALINE PHOSPHATASE 85 U/L (46-116); ANION GAP 7 mmol/L (5-15); ASPARTATE AMINO TRANSFERASE 14 U/L (15-37); BILIRUBIN,TOTAL 0.3 MG/DL (0.2-1.0); BLOOD UREA NITROGEN 26 mg/dL (7-18); CALCIUM 10.4 MG/DL (8.5-10.1); CARBON DIOXIDE 27 MMOL/L (21-32); CHLORIDE 110 MMOL/L (98-107); CREATININE 1.3 MG/DL (0.55-1.30); POTASSIUM 4.7 MMOL/L (3.5-5.1); SODIUM 144 MMOL/L (136-145)
--- NOTE | 2019-04-23 07:27 | NUR ---
HAND-OFF: Report given to LUBNA Aldana.
--- NOTE | 2019-04-23 07:45 | NUR ---
NURSE NOTES: Received patient on bed, awake. IV site intact and patent. Bed in low and locked position, call light in reach. No signs of respiratory distress or pain. Room board updated, will continue to monitor.
[2019-04-23 08:00] VITALS: BP 110/63
[2019-04-23] MEDS: Heparin 5000 units/ml inj SUBQ SCH (09:30)
[2019-04-23] MEDS: Sertraline 100mg tab ORAL SCH (09:31)
[2019-04-23] MEDS: Ascorbic Acid 500mg tab ORAL SCH (09:31)
[2019-04-23] MEDS: Losartan 25mg tab ORAL SCH (09:31)
[2019-04-23] MEDS: Zinc Sulfate 220mg cap ORAL SCH (09:31)
--- NOTE | 2019-04-23 09:34 | Cardiology Report ---
APPROVED REPORT EXAM: Two-dimensional and M-mode echocardiogram with Doppler and color Doppler. INDICATION Congestive Heart Failure M-Mode DIMENSIONS IVSd1.3 (0.7-1.1cm)Left Atrium (MM)3.8 (1.6-4.0cm) LVDd4.2 (3.5-5.6cm)Aortic Root2.2 (2.0-3.7cm) PWd1.0 (0.7-1.1cm)Aortic Cusp Exc.1.6 (1.5-2.0cm) IVSs1.6 cm LVDs2.2 (2.5-4.0cm) PWs1.4 cm Normal left ventricular chamber size, systolic function and wall motion. Left ventricular ejection fraction estimated to be 65 %. Mild left ventricular hypertrophy. Trivial posterior pericardial effusion. All other cardiac chamber sizes are within normal limits. Focal aortic valve sclerosis with adequate cusp excursion. Thickened mitral valve leaflets with normal excursion. Mitral annulus and aortic root calcification. Pulmonic valve not well visualized. Normal tricuspid valve structure. IVC measured at 2.1 cm with slight physiologic collapse. A color flow and spectral Doppler study was performed and revealed: Mild to moderate aortic regurgitation. Mild mitral regurgitation. Mitral diastolic velocities suggest reduced left ventricular relaxation c/w mild LV diastolic dysfunction (Grade I). Trace tricuspid regurgitation. Tricuspid systolic velocities suggests peak right ventricular systolic pressure of 22 mmHg.
--- NOTE | 2019-04-23 11:24 | Infectious Diseases Prog Note ---
Assessment/Plan Assessment/Plan antibiotics : vancomycin iv A 1. buttock MRSA abscess s/p rx 2. citrobacter UTI s/p rx 3. diabetes mellitus 4. hypertension P 1. d/c iv vancomycin 2. d/observe off antibiotics Subjective ROS Limited/Unobtainable: Yes Allergies: Coded Allergies: No Known Allergies (Unverified , 04/14/19) Objective Vital Signs Last 24 Hour Vital Signs Date Time Temp Pulse Resp B/P (MAP) Pulse Ox O2 Delivery O2 Flow Rate FiO2 04/23/19 09:31 110/63 04/23/19 09:31 71 110/63 04/23/19 09:00 Room Air 04/23/19 08:00 97.8 71 16 110/63 (79) 98 04/23/19 06:47 110/60 (77) 04/23/19 06:00 64 92/50 04/23/19 04:00 98.5 71 19 99/45 (63) 97 04/23/19 00:00 98.0 79 19 148/82 (104) 95 04/22/19 22:31 67 122/61 04/22/19 21:00 Room Air 04/22/19 20:20 130/75 04/22/19 20:00 98.1 79 19 130/75 (93) 97 04/22/19 18:39 73 117/63 04/22/19 16:53 Room Air 04/22/19 16:00 98.6 77 19 121/65 (83) 97 04/22/19 15:48 94 147/87 04/22/19 12:00 98.2 72 18 116/61 (79) 97 Height (Feet): 5 Height (Inches): 5.00 Weight (Pounds): 138 Respiratory/Chest: lungs clear Cardiovascular: normal rate, regular rhythm, no gallop/murmur Abdomen: soft, non tender Extremities: no edema Laboratory Tests Test 04/23/19 06:00 White Blood Count 5.2 K/UL (4.8-10.8) Red Blood Count 3.89 M/UL (4.20-5.40) L Hemoglobin 11.9 G/DL (12.0-16.0) L Hematocrit 36.1 % (37.0-47.0) L Mean Corpuscular Volume 93 FL (80-99) Mean Corpuscular Hemoglobin 30.6 PG (27.0-31.0) Mean Corpuscular Hemoglobin Concent 33.0 G/DL (32.0-36.0) Red Cell Distribution Width 13.1 % (11.6-14.8) Platelet Count 227 K/UL (150-450) Mean Platelet Volume 7.1 FL (6.5-10.1) Neutrophils (%) (Auto) 37.7 % (45.0-75.0) L Lymphocytes (%) (Auto) 37.6 % (20.0-45.0) Monocytes (%) (Auto) 9.8 % (1.0-10.0) Eosinophils (%) (Auto) 11.6 % (0.0-3.0) H Basophils (%) (Auto) 3.3 % (0.0-2.0) H Sodium Level 144 MMOL/L (136-145) Potassium Level 4.7 MMOL/L (3.5-5.1) Chloride Level 110 MMOL/L (98-107) H Carbon Dioxide Level 27 MMOL/L (21-32) Anion Gap 7 mmol/L (5-15) Blood Urea Nitrogen 26 mg/dL (7-18) H Creatinine 1.3 MG/DL (0.55-1.30) Estimat Glomerular Filtration Rate mL/min (>60) Glucose Level 97 MG/DL (74-106) Calcium Level 10.4 MG/DL (8.5-10.1) H Magnesium Level 1.8 MG/DL (1.8-2.4) Total Bilirubin 0.3 MG/DL (0.2-1.0) Aspartate Amino Transf (AST/SGOT) 14 U/L (15-37) L Alanine Aminotransferase (ALT/SGPT) 18 U/L (12-78) Alkaline Phosphatase 85 U/L (46-116) Pro-B-Type Natriuretic Peptide 101 pg/mL (0-125) Total Protein 6.5 G/DL (6.4-8.2) Albumin 3.1 G/DL (3.4-5.0) L Globulin 3.4 g/dL Albumin/Globulin Ratio 0.9 (1.0-2.7) L Current Medications Medications (Trade) Dose Ordered Sig/Katia Route PRN Reason Start Time Stop Time Status Last Admin Dose Admin Amlodipine Besylate (Norvasc) 5 mg BID ORAL 04/14/19 18:00 05/14/19 17:59 04/23/19 09:31 Ascorbic Acid (Vitamin C) 500 mg DAILY ORAL 04/19/19 09:00 05/19/19 08:59 04/23/19 09:31 Atorvastatin Calcium (Lipitor) 20 mg BEDTIME ORAL 04/14/19 21:00 05/14/19 20:59 04/22/19 20:21 Glipizide (Glucotrol) 5 mg BIAC ORAL 04/15/19 06:30 05/15/19 06:29 04/23/19 06:02 Heparin Sodium (Porcine) (Heparin 5000 units/ml) 5,000 units EVERY 12 HOURS SUBQ 04/14/19 21:00 05/14/19 20:59 04/23/19 09:30 Labetalol HCl (Normodyne) 100 mg Q8HR ORAL 04/15/19 22:00 05/15/19 21:59 04/22/19 15:48 Losartan Potassium (Cozaar) 25 mg EVERY 12 HOURS ORAL 04/15/19 21:00 05/15/19 20:59 04/23/19 09:31 Magnesium Hydroxide (Mom) 30 ml TIDPRN PRN ORAL Constipation 04/15/19 15:45 05/15/19 15:44 04/20/19 05:54 Multivitamins (Multivitamins) 1 tab DAILY ORAL 04/19/19 09:00 05/19/19 08:59 04/23/19 09:31 Pantoprazole (Protonix) 40 mg DAILY ORAL 04/15/19 09:00 05/15/19 08:59 04/23/19 09:31 Risperidone (RisperDAL) 1 mg TWICE A DAY ORAL 04/14/19 18:00 05/14/19 17:59 04/23/19 09:31 Sertraline HCl (Zoloft) 100 mg DAILY ORAL 04/15/19 09:00 05/15/19 08:59 04/23/19 09:31 Vancomycin HCl (Vanco rx to dose) 1 ea DAILY PRN MISC Per rx protocol 04/14/19 18:00 05/14/19 17:59 Vancomycin HCl 750 mg/Sodium Chloride 275 ml @ 183.333 mls/hr Q12HR@0300,1500 IVPB 04/15/19 03:00 04/24/19 23:59 04/23/19 03:59 Zinc Sulfate (Zinc Sulfate) 220 mg DAILY ORAL 04/19/19 09:00 04/29/19 08:59 04/23/19 09:31 Bharat Gardiner MD Apr 23, 2019 11:24
[2019-04-23 12:00] VITALS: BP 125/64
[2019-04-23] MEDS ORDERED: BACTRIM-DS1 EA ORAL (12:27)
--- NOTE | 2019-04-23 15:40 | NUR ---
NURSE NOTES: Patient discharged back to assisted living. Personal belongings inventoried and sent with patient. Patient portal paperwork sent with patient and reviewed. medication received from pharmacy and instructions were given. IV removed and site covered. ID band removed and disposed of. Patient needs met and patient kept comfortable at all times. Patient departed via ambulance.
--- NOTE | 2019-04-23 16:14 | CDS Physician Query ---
Clarification is required for compliance, coding accuracy, and to reflect severity of illness for this patient. Dear Dr. Trevor Talley Date: 04/23/2019 CDS name: Veena Alfaro Clinical Documentation States: HNP: This is a pleasant elderly female with history of hypertension, diabetes, admitted with complaints of sepsis, possibly mild shock due to a large buttock abscess. She also had a UTI...IV antibiotics. A posssible diagnosis of sepsis with shock was made in the medical record on . Upon review, it is difficult to determine whether this diagnosis has been ruled in, ruled out,or is still being worked up. Please indicate below the status of the aforementioned diagnosis. [x] Treated and resolve [] Presumed and treated [] Currently under treatment [] Still being worked-up [] Ruled out Present on Admission: [x] Yes [] No [] Clinically Undetermined Physician signature Date Please also document in your Progress Notes and/or Discharge Summary and indicate if the condition was present on admission. YULIANA
--- NOTE | 2019-04-23 16:46 | Surgery Progress Note ---
Surgery Progress Note Subjective Additional Comments no acute events labs noted exam stable doing better Objective Last 24 Hour Vital Signs Date Time Temp Pulse Resp B/P (MAP) Pulse Ox O2 Delivery O2 Flow Rate FiO2 04/23/19 12:00 98.1 70 17 125/64 (84) 97 04/23/19 09:31 110/63 04/23/19 09:31 71 110/63 04/23/19 09:00 Room Air 04/23/19 08:00 97.8 71 16 110/63 (79) 98 04/23/19 06:47 110/60 (77) 04/23/19 06:00 64 92/50 04/23/19 04:00 98.5 71 19 99/45 (63) 97 04/23/19 00:00 98.0 79 19 148/82 (104) 95 04/22/19 22:31 67 122/61 04/22/19 21:00 Room Air 04/22/19 20:20 130/75 04/22/19 20:00 98.1 79 19 130/75 (93) 97 04/22/19 18:39 73 117/63 04/22/19 16:53 Room Air I&O Intake and Output 04/22/19 04/23/19 19:00 07:00 Intake Total 1295.000 ml 980 ml Balance 1295.000 ml 980 ml Intake Oral 1020 ml 980 ml IV Total 275.000 ml # Voids 8 3 # Bowel Movements 1 Dressing: saturated Wound: clean Drains: other Cardiovascular: RSR Respiratory: clear Abdomen: soft, non-tender, present bowel sounds Extremities: no tenderness, no cyanosis, other Laboratory Tests Test 04/23/19 06:00 White Blood Count 5.2 K/UL (4.8-10.8) Red Blood Count 3.89 M/UL (4.20-5.40) L Hemoglobin 11.9 G/DL (12.0-16.0) L Hematocrit 36.1 % (37.0-47.0) L Mean Corpuscular Volume 93 FL (80-99) Mean Corpuscular Hemoglobin 30.6 PG (27.0-31.0) Mean Corpuscular Hemoglobin Concent 33.0 G/DL (32.0-36.0) Red Cell Distribution Width 13.1 % (11.6-14.8) Platelet Count 227 K/UL (150-450) Mean Platelet Volume 7.1 FL (6.5-10.1) Neutrophils (%) (Auto) 37.7 % (45.0-75.0) L Lymphocytes (%) (Auto) 37.6 % (20.0-45.0) Monocytes (%) (Auto) 9.8 % (1.0-10.0) Eosinophils (%) (Auto) 11.6 % (0.0-3.0) H Basophils (%) (Auto) 3.3 % (0.0-2.0) H Sodium Level 144 MMOL/L (136-145) Potassium Level 4.7 MMOL/L (3.5-5.1) Chloride Level 110 MMOL/L (98-107) H Carbon Dioxide Level 27 MMOL/L (21-32) Anion Gap 7 mmol/L (5-15) Blood Urea Nitrogen 26 mg/dL (7-18) H Creatinine 1.3 MG/DL (0.55-1.30) Estimat Glomerular Filtration Rate mL/min (>60) Glucose Level 97 MG/DL (74-106) Calcium Level 10.4 MG/DL (8.5-10.1) H Magnesium Level 1.8 MG/DL (1.8-2.4) Total Bilirubin 0.3 MG/DL (0.2-1.0) Aspartate Amino Transf (AST/SGOT) 14 U/L (15-37) L Alanine Aminotransferase (ALT/SGPT) 18 U/L (12-78) Alkaline Phosphatase 85 U/L (46-116) Pro-B-Type Natriuretic Peptide 101 pg/mL (0-125) Total Protein 6.5 G/DL (6.4-8.2) Albumin 3.1 G/DL (3.4-5.0) L Globulin 3.4 g/dL Albumin/Globulin Ratio 0.9 (1.0-2.7) L Plan Problems: (1) Decubitus ulcer Assessment & Plan: 73-year-old female with a foul-smelling right buttock full- thickness stage 3 decubitus ulcer approximately 3 cm x 3 cm with 100% slough. Periwound intact. No purulent drainage. Also has a small unstageable 1 cm x 2 cm left buttock decubitus ulcer as well. Periwound intact. No fluctuance. Nontender on palpation. Patient unsure how long she has had it for. Pt presented on admission with full thickness pressure injury R ischium. Base of wound has 90% slough. Periwound indurated without erythema. Pt verbalized pain when perimeter of wound palpated. No odor or exudate noted.(L)3cm x (W) 2.5cm. Excisional debridement of wound done at bedside by .Pt tolerated procedure.Small amt sanguineous exudate noted.Gauze packing in place and covered with Optifoam drsg. Patient states that she is able to move and does walk to the bedside commode. I spoke to patient and explained her how important is that she keeps turning herself and offloading pressure on areas of wound and bony prominences. Patient expressed understanding and states she will do her best. Wash right buttock wound with normal saline daily. Apply Thera honey and foam dressing. Will discuss with patient excisional versus non-excisional debridement Turn every 2 hours Offload pressure on heels with pillow Thank you for this consultation we will continue to follow with recommendations (2) Sacral decubitus ulcer Assessment & Plan: DAILY ESTIMATED NEEDS: Needs based on Wound/ 65kg 25-30 kcals/kg 6915-3040 total kcals 1.3-1.8 g protein/kg 85-117 g total protein 25-30 mL/kg 9634-9510 total fluid mLs NUTRITION DIAGNOSIS: Increased kcal/prot needs R/T wound healing as evidenced by pt admitted w/ stage 3 R ischium wound, s/p excisional debridement and small unstageable wound @ L buttock. CURRENT DIET:CCHO LOW, soft easy chew PO DIET RECOMMENDATIONS: CCHO MED/ texture as tolerated ADDITIONAL RECOMMENDATIONS: * Wound healing: add MVI w/ min 1 tab QD add Vit C 500mg QD add ZnSO4 220mg QD x 10 days Lopez 1pkt BID added to tray * A1C for eval of glycemic control * Consider accucheck + SSI: h/o DM * Snacks TID in b/w meals to prevent hypoglycemia * F/up CBC and BMP as able (last done on 04/16) Александр Garg Apr 23, 2019 16:46
--- NOTE | 2019-04-24 00:45 | Progress Note ---
DATE: 04/23/2019 CARDIOLOGY PROGRESS NOTE SUBJECTIVE: The patient has improved. She is off antibiotics this afternoon. Ongoing wound care. We will follow. I discussed transfer to assisted living facility. OBJECTIVE: Her blood pressure parameters have been stable. Vitals reviewed. Exam without change. PLAN: Discharge medication reviewed and reconciled. Jovan Rose M.D. DR: MIKAEL JOB#: [id number] CC:
--- NOTE | 2019-04-24 12:39 | NUR ---
*-* INSURANCE *-* CLINICALS AND DISCHARGE SUMMARY HAS BEEN FAXED TO: [facility] No Traffic Chief or tracking# assigned yet #[phone]
== END 2019-04-23 15:20 | disposition home or self-care (01) | DRG 720 ==
LOC: EDBD 11:39 → EMR 12:00 → 4E 13:59 → EDBEDREQ 16:20 → OBSVTOIN 17:50 → 4E 04-16 23:44
PROC: 0Y903ZZ Drainage of Right Buttock, Percutaneous Approach (ICD-10-PCS; principal; 2019-04-17)
DX: A41.9 Sepsis, unspecified organism (principal); L89.313 Pressure ulcer of right buttock, stage 3; L02.31 Cutaneous abscess of buttock; N39.0 Urinary tract infection, site not specified; R65.21 Severe sepsis with septic shock; J44.9 Chronic obstructive pulmonary disease, unspecified; L89.210 Pressure ulcer of right hip, unstageable; E11.9 Type 2 diabetes mellitus without complications; B95.62 Methicillin resistant Staphylococcus aureus infection as the cause of diseases classified elsewhere; B96.89 Other specified bacterial agents as the cause of diseases classified elsewhere; E86.0 Dehydration; I11.0 Hypertensive heart disease with heart failure; I50.32 Chronic diastolic (congestive) heart failure; E44.1 Mild protein-calorie malnutrition; I20.8 Other forms of angina pectoris; E16.2 Hypoglycemia, unspecified
CPT/HCPCS: 36415; 71045; 80053; 80202; 81003; 82550; 83605; 83690; 83735; 83880; 84484; 85025; 85610; 85651; 85730; 86140; 87040; 87070; 87081; 87086; 87181; 87205; 93005; 93306; 94640; 94664; 96365; 96367; 96375; 99285; J2405